=== PATIENT | female | born 1955 | race Caucasian/White ===

== ENCOUNTER 2019-03-11 10:48 | Inpatient (IN) | payer MEDICARE, OTHER ==
[~2019-03-11] VITALS: Ht 170.2 cm; Wt 121.1 kg
[~2019-03-11 10:48] MED LIST: ALEVE220 M1 PO; BAYER WOMEN'S1 EACH PO; BENICAR HCT 401 EACH PO; GLUCOTROL10 MG PO; HYDRALAZINE HCL25 MG PO; INVOKANA PO; VYTORIN 10-401 EACH PO
--- OUTSIDE RECORDS SUMMARY | 2019-03-11 10:52 | XMS REPORT | Summary of Care ---
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 Operator Name Role Phone Mazin Lea PCP Encounter HQ [facility]) [phone] Date(s): 08/20/18 - 08/21/18 [facility] [id number] [place] [address]- [phone] Encounter Diagnosis Diarrhea, unspecified (Final) - 08/28/18 Weakness (Final) - Syncope and collapse (Final) - Type 2 diabetes mellitus without complications (Final) - Essential (primary) hypertension (Final) - Unspecified dementia without behavioral disturbance (Final) - Hyperlipidemia, unspecified (Final) - Christiano coma scale score 13-15, unspecified time (Final) - Dehydration (Final) - Elevated white blood cell count, unspecified (Final) - FPC (current) use of insulin (Final) - Other manager long term care (current) drug therapy (Final) - Personal history of transient ischemic attack (TIA), and cerebral infarction wit hout residual deficits (Final) - Diarrhea (Discharge Diagnosis) - 08/20/18 Generalized weakness (Discharge Diagnosis) - 08/20/18 Discharge Disposition: Home or Self Care Attending Physician: Kendy Rogers DO Vital Signs 1 2 3 Most recent to oldest [Reference Range]: 172.72 cm (08/20/18 5:44 PM) Height 97 DegF (08/21/18 12:11 AM) 97.6 DegF (08/20/18 5:44 PM) Temperature Oral [96.4-99.1 DegF] 154/87 mmHg *HI* (08/21/18 12:11 AM) 139/77 mmHg (08/20/18 11:00 PM) 132/77 mmHg (08/20/18 9:00 PM) Blood Pressure [90-140/60-90 mmHg] 14 BRMIN (08/21/18 12:11 AM) 17 BRMIN (08/20/18 11:00 PM) 17 BRMIN (08/20/18 9:00 PM) Respiratory Rate [14-20 BRMIN] 83 bpm (08/20/18 6:30 PM) 74 bpm (08/20/18 5:44 PM) Peripheral Pulse Rate [60-100 bpm] 118.182 kg (08/20/18 5:44 PM) Weight 39.62 m2 (08/20/18 5:44 PM) Body Mass Index Problem List Condition Effective Dates Status Health Status Informant Dementia(Confirmed) Active Diabetes(Confirmed) Active Hypertension(Confirm Active ed) TIA (transient Resolved ischemic attack)(Confirmed) Allergies, Adverse Reactions, Alerts No Known Medication Allergies Medications Flagyl 500 mg oral tablet 500 mg=1 tab, PO, BID, X 10 day, # 20 tab, 0 Refill(s) Start Date: 08/20/18 Stop Date: 08/30/18 Status: Completed Sodium Chloride 0.9% (Bolus) IV 1,000 mL, 1000 ml/hr, Infuse Over: 1 hr, Route: IV, 1,000, Drug form: INJ, ONCE, Priority: STAT, Dosing Weight 118.182 kg, Start date: 08/20/18 18:27:00 FIBER ANALYST, St op date: 08/20/18 18:27:00 FIBER ANALYST Start Date: 08/20/18 Stop Date: 08/20/18 Status: Completed Results Most recent to 1 oldest [Reference Range]: Neutrophils # 10.1 K/CMM [1.5-8.1 K/CMM] *HI* (08/20/18 6:34 PM) Lymphocytes # 0.6 K/CMM [1.0-5.5 K/CMM] *LOW* (08/20/18 6:34 PM) Monocytes # [0.0-0.8 0.8 K/CMM K/CMM] (08/20/18 6:34 PM) eGFR 43 mL/min/1.73m2 1 *NA* (08/20/18 6:34 PM) A/G Ratio [0.7-1.6] 1.0 (08/20/18 6:34 PM) Albumin Lvl [3.5-5.0 3.6 g/dL g/dL] (08/20/18 6:34 PM) Alk Phos [39-136 96 unit/L unit/L] (08/20/18 6:34 PM) ALT [0-65 unit/L] 22 unit/L (08/20/18 6:34 PM) AGAP [10.0-20.0 13.0 mEq/L mEq/L] (08/20/18 6:34 PM) AST [0-37 unit/L] 13 unit/L (08/20/18 6:34 PM) B/C Ratio [6-25] 12 (08/20/18 6:34 PM) Basophils [0.0-1.0 0.2 % %] (08/20/18:34 PM) BUN [7-22 mg/dL] 16 mg/dL (08/20/18 6:34 PM) Calcium Lvl 9.0 mg/dL [8.5-10.5 mg/dL] (08/20/18:34 PM) Total CK [12-191 59 unit/L unit/L] (08/20/18:34 PM) Chloride Lvl [95-109 105 mEq/L mEq/L] (08/20/18:34 PM) CO2 [24-32 mEq/L] 23 mEq/L *LOW* (08/20/18:34 PM) Creatinine Lvl 1.30 mg/dL [0.50-1.40 mg/dL] (08/20/18:34 PM) Eosinophils [0.0-4.0 0.2 % %] (08/20/18 6:34 PM) Globulin [2.7-4.2 3.7 g/dL g/dL] (08/20/18 6:34 PM) Glucose Lvl [70-99 353 mg/dL mg/dL] *HI* (08/20/18 6:34 PM) Hct [36.0-48.0 %] 41.1 % (08/20/18 6:34 PM) Hgb [12.0-16.0 g/dL] 13.5 g/dL (08/20/18 6:34 PM) INR [0.85-1.17] 1.09 (08/20/18 6:34 PM) Potassium Lvl 4.0 mEq/L [3.5-5.1 mEq/L] (08/20/18 6:34 PM) Lipase Lvl [73-393 166 unit/L unit/L] (08/20/18 6:34 PM) Lymphocytes 5.3 % [20.0-40.0 %] *LOW* (08/20/18:34 PM) MCH [27.0-31.0 pg] 28.8 pg (08/20/18:34 PM) MCHC [32.0-36.0 32.8 g/dL g/dL] (08/20/18:34 PM) MCV [80.0-98.0 fL] 87.8 fL (08/20/18:34 PM) Monocytes [2.0-12.0 7.0 % %] (08/20/18 6:34 PM) MPV [7.4-10.4 fL] 10.1 fL (08/20/18:34 PM) Sodium Lvl [135-145 137 mEq/L mEq/L] (08/20/18:34 PM) Platelet [133-450 199 K/CMM K/CMM] (08/20/18:34 PM) Segs [45.0-75.0 %] 87.3 % *HI* (08/20/18:34 PM) Total Protein 7.3 g/dL [6.4-8.4 g/dL] (08/20/18:34 PM) PT [12.0-14.7 13.9 seconds seconds] (08/20/18 6:34 PM) PTT [22.9-35.8 35.8 seconds seconds] (08/20/18 6:34 PM) RBC [4.20-5.40 4.68 M/CMM M/CMM] (08/20/18:34 PM) RDW [11.5-14.5 %] 13.2 % (08/20/18 6:34 PM) Bili Total [0.2-1.3 1.4 mg/dL mg/dL] *HI* (08/20/18:34 PM) Troponin-I <0.02 ng/mL [0.00-0.40 ng/mL] (08/20/18 6:34 PM) WBC [3.7-10.4 K/CMM] 11.6 K/CMM *HI* (08/20/18 6:34 PM) 1Result Comment: The eGFR is calculated using the CKD-EPI formula. In most young, healthy individuals the eGFR will be >90 mL/min/1.73m2. The eGFR declines with age. An eGFR of 60-89 may be normal in some populations, particularly the elderly, for whom the CKD-EPI formula has not been extensively validated. Use of the eGFR is not recommended in the following populations: Individuals with unstable creatinine concentrations, including patients and those with serious co-morbid conditions. Patients with extremes in muscle mass or diet. The data above are obtained from the National Kid[employer] Disease Education Program ( NKDEP) which additionally recommends that when the eGFR is used in patients with extremes of body mass index for purposes of drug dosing, the eGFR should be mul tiplied by the estimated BMI. Immunizations Given and Recorded Vaccine Date Status Refusal Reason influenza virus vaccine, inactivated 06/16/17 Given pneumococcal 23-valent vaccine 06/15/17 Given Procedures Procedure Date Related Diagnosis Body Site Status section1 Completed Endarterectomy2 Completed Knee replacement3 Completed 1x 4 2right side 3bilateral Social History Social History Type Response Smoking Status Never smoker; Exposure to Tobacco Smoke None; Cigarette Smoking Last 365 Days No; Reg Smoking Cessation Counseling No entered on: 01/03/19 Assessment and Plan No data available for this section
--- OUTSIDE RECORDS SUMMARY | 2019-03-11 10:52 | XMS REPORT | Continuity of Care Document ---
Author Author [facility] Address Unknown Phone Unavailable Care Team Providers [facility] Director Name Role Phone Sian's Plan Information [employer] Unavailable Unavailable Problems Problem Status Onset Date Classification Date Reported Comments Source Near syncope 01/04/2019 01/06/2019 [facility] DIARRHEA Active 01/03/2019 [facility] Diarrhea, unspecified 08/29/2018 03/10/2019 [facility] Diarrhea 08/20/2018 03/10/2019 [facility] Generalized weakness 08/20/2018 03/10/2019 [facility] AMS Active 08/20/2018 [facility] HYPOGLYCEMIA Active 06/15/2017 [facility] AT RISK FOR HYPOGLYCEMIA Active 06/15/2017 [facility] Dementia Active Problem 03/10/2019 [facility] Diabetes Active Problem 03/10/2019 [facility] Hypertension Active Problem 03/10/2019 [facility] TIA (Confirmed) Resolved Problem 03/10/2019 [facility] Weakness 03/10/2019 [facility] Syncope and collapse 03/10/2019 [facility] Type 2 diabetes mellitus without complications 03/10/2019 [facility] Essential hypertension 03/10/2019 [facility] Unspecified dementia without behavioral disturbance 03/10/2019 [facility] Hyperlipidemia, unspecified 03/10/2019 [facility] Christiano coma scale score 13-15, unspecified time 03/10/2019 [facility] Dehydration 03/10/2019 [facility] Elevated white blood cell count, unspecified 03/10/2019 [facility] penitentiary use of insulin 03/10/2019 [facility] Other longterm drug therapy 03/10/2019 [facility] Personal history of transient ischemic attack , and cerebral infarction without residual deficits 03/10/2019 [facility] OTH PERSONAL RISK FACTORS, NOT ELSEWHERE Active [facility] Medications Medication Details Route Status Patient Instructions Ordering Provider Order Date Source Saline Flush 0.9% 10 mL, Route: IVP, Drug Form: INJ, Dosing Weight 118.182, kg, PRN, PRN Line Flush, Start date: 01/03/19 21:28:00 CDT, Duration: 30 day, Stop date: 02/02/19 21:27:00 CDTNotes: (Same as: BD Posiflush) No Longer Active 01/04/2019 [facility] Metronidazole 500 MG Oral Tablet [Flagyl] 500 mg=1 tab, PO, BID, X 10 day, # 20 tab, 0 Refill(s) No Longer Active 08/21/2018 [facility] Sodium Chloride 0.9% (Bolus) IV 1,000 mL, 1000 ml/hr, Infuse Over: 1 hr, Route: IV, 1,000, Drug form: INJ, ONCE, Priority: STAT, Dosing Weight 118.182 kg, Start date: 08/20/18 18:27:00 CHEESE WEIGHER, Stop date: 08/20/18 18:27:00 CHEESE WEIGHER Inactive 08/21/2018 [facility] patient's own NAMENDA XR patient's own NAMENDA XR, 28 mg, Drug form: MISC, Route: PO, Daily, 06/16/17 9:00:00 CDT, Duration: 30 day, Stop date: 07/15/17 9:00:00 CHEESE WEIGHER Inactive 06/16/2017 [facility] influenza virus vaccine, inactivated 0.5 mL, Route: IM, Drug Form: SUSP, Daily, Start date: 06/16/17 9:00:00 CDT, Duration: 1 doses or times, Stop date: 06/16/17 9:00:00 CDTNotes: (Same as: Fluzone Quadrivalent, Fluarix Quadrivalent) For 3 years of age and older (0.5 mL IM) Shake well before use Inactive 06/16/2017 [facility] Sertraline 50 mg, 1 tab, Route: PO, Drug form: TAB, Daily, Dosing Weight 115.909, kg, Start date: 06/16/17 9:00:00 CDT, Duration: 30 day, Stop date: 07/15/17 9:00:00 CSTNotes: (Same as: Zoloft) Inactive 06/16/2017 [facility] Memantine 28 mg, Route: PO, Drug form: ERCAP, Daily, Dosing Weight 115.909, kg, Start date: 06/16/17 9:00:00 CDT, Duration: 30 day, Stop date: 07/15/17 9:00:00 CHEESE WEIGHER No Longer Active 06/16/2017 [facility] Hydralazine Hydrochloride 50 MG Oral Tablet 50 mg, 1 tab, Route: PO, Drug form: TAB, BID, Dosing Weight 115.909, kg, Start date: 06/15/17 21:00:00 CDT, Duration: 30 day, Stop date: 07/15/17 9:00:00 CSTNotes: (Same as: Apresoline) May interfere w/enteral feedings Take With Food No Longer Active 06/16/2017 [facility] donepezil 10 mg, 2 tab, Route: PO, Drug form: TAB, Bedtime, Dosing Weight 115.909, kg, Start date: 06/15/17 21:00:00 CDT, Duration: 30 day, Stop date: 07/14/17 21:00:00 CDTNotes: (Same as: Aricept) No Longer Active 06/16/2017 [facility] atorvastatin 20 mg, 2 tab, Route: PO, Drug form: TAB, Daily, Dosing Weight 115.909, kg, Start date: 06/15/17 21:00:00 CDT, Duration: 30 day, Stop date: 07/14/17 21:00:00 CDTNotes: (Same As: Lipitor) No Longer Active 06/16/2017 [facility] Pneumovax 23 0.5 mL, Route: IM, Drug Form: INJ, Daily, Start date: 06/15/17 17:30:00 CDT, Duration: 1 doses or times, Stop date: 06/15/17 17:30:00 CDTNotes: (Same as: Pneumovax 23) Refrigerate Inactive 06/15/2017 [facility] Ciprofloxacin 500 MG Oral Tablet [Cipro] 500 mg=1 tab, PO, Q12H, for UTI, X 3 day, # 6 tab, 0 Refill(s) No Longer Active 06/15/2017 [facility] pneumococcal capsular polysaccharide type 1 vaccine / pneumococcal capsular polysaccharide type 10A vaccine / pneumococcal capsular polysaccharide type 11A vaccine / pneumococcal capsular polysaccharide type 12F vaccine / pneumococcal capsular polysacchar 0.5 mL, Route: IM, Drug Form: INJ, Daily, Start date: 06/15/17 17:00:00 CDT, Duration: 1 doses or times, Stop date: 06/15/17 17:00:00 CDTNotes: (Same as: Pneumovax 23) Refrigerate Inactive 06/15/2017 [facility] Docusate 100 mg, 1 cap, Route: PO, Drug form: CAP, BID, Dosing Weight 115.909, kg, Start date: 06/15/17 17:00:00 CDT, Duration: 30 day, Stop date: 07/15/17 9:00:00 CSTNotes: (Same as: Colace) (Do Not Crush) No Longer Active 06/15/2017 [facility] PLease Bring Pt's Own Memantin XR to pharmacy for label PLease Bring Pt's Own Memantin XR to pharmacy for label, Reminder, Drug form: MISC, Route: MISC, Daily, 06/15/17 12:00:00 CDT, Duration: 30 day, Stop date: 07/15/17 9:00:00 CHEESE WEIGHER Inactive 06/15/2017 [facility] Humalog 8 unit, SUB-Q, QAM, 0 Refill(s) Active 06/15/2017 [facility] Levemir 60 unit, SUB-Q, QAM (Insulin), 0 Refill(s) Active 06/15/2017 [facility] Rocephin 1 gm, Route: IVPB, [id number], Dosing Weight 115.909, kg, Start date: 06/15/17 11:00:00 CDT, Duration: 7 day, Stop date: 06/21/17 11:00:00 CDT, ABX Indication: Urinary Tract InfectionNotes: (Same As: Rocephin). Use with 100 mL NS and infuse over 30 min MEDICATION WASTE Product Size: 1000 mg Product Wasted: ___ mg No Longer Active 06/15/2017 [facility] sodium chloride 0.9% 1000 ml INJ 1,000 mL 1,000 mL, Rate: 100 ml/hr, Infuse over: 10 hr, Route: IV, Dosing Weight 115.909 kg, Total Volume: 1,000, Start date: 06/15/17 10:13:00 CDT, Duration: 30 day, Stop date: 07/15/17 10:12:00 CHEESE WEIGHER No Longer Active 06/15/2017 [facility] Enoxaparin 40 mg, 0.4 mL, Route: SUB-Q, Drug form: INJ, [id number], Dosing Weight 115.909, kg, Consider for obese patients, Start date: 06/15/17 10:00:00 CDT, Duration: 30 day, Stop date: 07/14/17 22:00:00 CDTNotes: (Same as: Lovenox) No Longer Active 06/15/2017 [facility] Ondansetron 4 mg, 2 mL, Route: IVP, Drug form: INJ, Q6H, Dosing Weight 115.909, kg, PRN Nausea & Vomiting, Start date: 06/15/17 9:51:00 CDT, Duration: 30 day, Stop date: 07/15/17 9:50:00 CSTNotes: (Same as: Kaitlin) MEDICATION WASTE Product Size: 4 mg Product Wasted: ___ mg No Longer Active 06/15/2017 [facility] Insulin Lispro 4 unit, 0.04 mL, Route: SUB-Q, Drug form: SOLN, Bedtime, Dosing Weight 115.909, kg, PRN Blood Glucose Results, Start date: 06/15/17 9:49:00 CDT, Duration: 30 day, Stop date: 07/15/17 9:48:00 CSTNotes: Roll in palms of hands gently; Do not shake `vigorously. (Same as: Humalog ) "Single Patient Use Only " WASTE: F/P - Black; E - Municipal Trash Bin Stable for 28 days at room temperature. Expires in days from Date No Longer Active 06/15/2017 [facility] Glucagon 1 mg, Route: IM, Drug form: PDR/INJ, PRN, Dosing Weight 115.909, kg, PRN Blood Glucose Results, Start date: 06/15/17 9:49:00 CDT, Duration: 30 day, Stop date: 07/15/17 8:48:00 CHEESE WEIGHER No Longer Active 06/15/2017 [facility] Dextrose 50% Syringe 12.5 gm, 25 mL, Route: IVP, Drug Form: INJ, Dosing Weight 115.909, kg, PRN, PRN Blood Glucose Results, Start date: 06/15/17 9:49:00 CDT, Duration: 30 day, Stop date: 07/15/17 8:48:00 CHEESE WEIGHER No Longer Active 06/15/2017 [facility] sertraline 50 mg oral tablet 50 mg=1 tab, PO, Daily, 0 Refill(s) Active 06/15/2017 [facility] Glipizide 5 MG Oral Tablet 5 mg=1 tab, PO, BID, 0 Refill(s) Active 06/15/2017 [facility] Olmesartan Medoxomil and HCTZ Olmesartan Medoxomil and HCTZ, 40mg/12.5mg, PO, Daily, Refill(s) 0 Active 06/15/2017 [facility] levocetirizine 5 mg oral tablet 5 mg=1 tab, PO, QPM, 0 Refill(s) Active 06/15/2017 [facility] Hydralazine Hydrochloride 50 MG Oral Tablet 50 mg=1 tab, PO, BID, 0 Refill(s) Active 06/15/2017 [facility] atorvastatin 20 mg oral tablet 20 mg=1 tab, PO, Daily, 0 Refill(s) Active 06/15/2017 [facility] 24 HR Memantine hydrochloride 28 MG Extended Release Capsule [Namenda] 28 mg=1 cap, PO, Daily, # 30 cap, 0 Refill(s) Active 06/15/2017 [facility] donepezil 10 mg oral tablet 10 mg=1 tab, PO, Bedtime, 0 Refill(s) Active 06/15/2017 [facility] D5W 1/2NS 1,000 mL 1,000 mL, Rate: 150 ml/hr, Infuse over: 6.7 hr, Route: IV, Dosing Weight 115.909 kg, Total Volume: 1,000, Start date: 06/15/17 5:31:00 CDT, Duration: 30 day, Stop date: 07/15/17 5:30:00 CHEESE WEIGHER Inactive 06/15/2017 [facility] Dextrose 50% Syringe 25 gm, Route: IVP, Dosing Weight 113.636, kg, ONCE, Start date: 06/15/17 5:30:00 CDT, Stop date: 06/15/17 5:30:00 CDT Inactive 06/15/2017 [facility] D5W 1/2NS 1,000 mL 1,000 mL, Rate: 75 ml/hr, Infuse over: 13.3 hr, Route: IV, Dosing Weight 113.636 kg, Total Volume: 1,000, Priority: STAT, Start date: 06/15/17 4:05:00 CDT, Duration: 30 day, Stop date: 07/15/17 4:04:00 CHEESE WEIGHER Inactive 06/15/2017 [facility] Allergies, Adverse Reactions, Alerts Substance Category Reaction Severity Reaction type Status Date Reported Comments Source No Known Medication Allergies Assertion Drug allergy [facility] Immunizations Immunization Date Given Site Status Last Updated Comments Source influenza virus vaccine, inactivated 06/16/2017 Left Deltoid completed [facility] pneumococcal 23-valent vaccine 06/15/2017 Right Deltoid completed [facility] Results Order Name Results Value Reference Range Date Interpretation Comments Source URINE AND STOOL UA Urobilinogen <=1.0 mg/dL 0.1 - 1.0 01/04/2019 [facility] URINE AND STOOL UA Blood Negative (01/04/19 12:52 AM) Negative 01/04/2019 [facility] URINE AND STOOL UA Hyal Cast 20 0 - 2 01/04/2019 [facility] URINE AND STOOL UA Mucus Few /LPF None Seen /LPF 01/04/2019 [facility] URINE AND STOOL UA RBC 2 0 - 2 01/04/2019 [facility] URINE AND STOOL UA WBC 2 0 - 5 01/04/2019 [facility] URINE AND STOOL UA Sq Epi Occasional /LPF Few /LPF 01/04/2019 [facility] URINE AND STOOL UA Leuk Est Negative (01/04/19 12:52 AM) Negative 01/04/2019 [facility] URINE AND STOOL UA Nitrite Negative (01/04/19 12:52 AM) Negative 01/04/2019 [facility] URINE AND STOOL UA Spec Grav 1.020 <=1.030 01/04/2019 [facility] URINE AND STOOL UA Turbidity Clear (01/04/19 12:52 AM) Clear 01/04/2019 [facility] URINE AND STOOL UA Color Yellow *NA* (01/04/19 12:52 AM) Yellow 01/04/2019 [facility] URINE AND STOOL UA Ketones Trace mg/dL Negative mg/dL 01/04/2019 [facility] URINE AND STOOL UA Bili Negative *NA* (01/04/19 12:52 AM) Negative 01/04/2019 [facility] URINE AND STOOL UA Glucose Negative mg/dL Negative mg/dL 01/04/2019 [facility] URINE AND STOOL UA pH 5.0 5.0 - 8.0 01/04/2019 [facility] URINE AND STOOL UA Protein Negative mg/dL Negative mg/dL 01/04/2019 [facility] CARDIAC ENZYMES BNP 112 <=100 pg/mL 01/04/2019 [facility] CARDIAC ENZYMES Troponin-I <0.02 0.00 - 0.40 01/04/2019 [facility] CHEM PANEL A/G Ratio 1.1 0.7 - 1.6 01/04/2019 [facility] CHEM PANEL Globulin 3.4 2.7 - 4.2 01/04/2019 [facility] CHEM PANEL B/C Ratio 17 6 - 25 01/04/2019 [facility] CHEM PANEL AGAP 10.5 10.0 - 20.0 01/04/2019 [facility] CHEM PANEL eGFR 65 01/04/2019 Result Comment: The eGFR is calculated using the [...] from the National Kidney Disease Education Program (NKDEP) which additionally recommends that when the eGFR is used in patients with extremes of body mass index for purposes of drug dosing, the eGFR should be multiplied by the estimated BMI. [facility] CHEM PANEL BUN 16 7 - 22 01/04/2019 [facility] CHEM PANEL Potassium Lvl 3.5 3.5 - 5.1 01/04/2019 [facility] CHEM PANEL Sodium Lvl 141 135 - 145 01/04/2019 [facility] CHEM PANEL Creatinine Lvl 0.93 0.50 - 1.40 01/04/2019 [facility] CHEM PANEL Calcium Lvl 9.2 8.5 - 10.5 01/04/2019 [facility] CHEM PANEL CO2 28 24 - 32 01/04/2019 [facility] CHEM PANEL Chloride Lvl 106 95 - 109 01/04/2019 [facility] CHEM PANEL Bili Total 1.1 0.2 - 1.3 01/04/2019 [facility] CHEM PANEL Alk Phos 94 39 - 136 01/04/2019 [facility] CHEM PANEL AST 12 0 - 37 01/04/2019 [facility] CHEM PANEL ALT 23 0 - 65 01/04/2019 [facility] CHEM PANEL Albumin Lvl 3.6 3.5 - 5.0 01/04/2019 [facility] CHEM PANEL Total Protein 7.0 6.4 - 8.4 01/04/2019 [facility] CHEM PANEL Glucose Lvl 149 70 - 99 01/04/2019 [facility] HEMATOLOGY Basophils 0.3 0.0 - 1.0 01/04/2019 [facility] HEMATOLOGY Lymphocytes # 1.0 1.0 - 5.5 01/04/2019 [facility] HEMATOLOGY Monocytes 7.3 2.0 - 12.0 01/04/2019 [facility] HEMATOLOGY Lymphocytes 10.8 20.0 - 40.0 01/04/2019 [facility] HEMATOLOGY Eosinophils 1.2 0.0 - 4.0 01/04/2019 [facility] HEMATOLOGY Eosinophils # 0.1 0.0 - 0.5 01/04/2019 [facility] Monocytes # 0.7 0.0 - 0.8 01/04/2019 [facility] Neutrophils # 7.8 1.5 - 8.1 01/04/2019 [facility] Segs 80.4 45.0 - 75.0 01/04/2019 [facility] Platelet 225 133 - 450 01/04/2019 [facility] RDW 13.3 11.5 - 14.5 01/04/2019 [facility] MPV 8.9 7.4 - 10.4 01/04/2019 [facility] MCH 28.9 27.0 - 31.0 01/04/2019 [facility] MCHC 33.5 32.0 - 36.0 01/04/2019 [facility] Hct 37.9 36.0 - 48.0 01/04/2019 [facility] MCV 86.3 80.0 - 98.0 01/04/2019 [facility] RBC 4.39 4.20 - 5.40 01/04/2019 [facility] WBC 9.7 3.7 - 10.4 01/04/2019 [facility] Hgb 12.7 12.0 - 16.0 01/04/2019 [facility] CARDIAC ENZYMES Troponin-I <0.02 0.00 - 0.40 08/21/2018 [facility] CARDIAC ENZYMES Total CK 59 12 - 191 08/21/2018 [facility] CHEM PANEL Lipase Lvl 166 73 - 393 08/21/2018 [facility] CHEM PANEL eGFR 43 08/21/2018 Result Comment: The eGFR is calculated using the [...] from the National Kidney Disease Education Program (NKDEP) which additionally recommends that when the eGFR is used in patients with extremes of body mass index for purposes of drug dosing, the eGFR should be multiplied by the estimated BMI. [facility] CHEM PANEL AST 13 0 - 37 08/21/2018 [facility] CHEM PANEL ALT 22 0 - 65 08/21/2018 [facility] CHEM PANEL Bili Total 1.4 0.2 - 1.3 08/21/2018 [facility] CHEM PANEL Alk Phos 96 39 - 136 08/21/2018 [facility] CHEM PANEL Calcium Lvl 9.0 8.5 - 10.5 08/21/2018 [facility] CHEM PANEL Total Protein 7.3 6.4 - 8.4 08/21/2018 [facility] CHEM PANEL Albumin Lvl 3.6 3.5 - 5.0 08/21/2018 [facility] CHEM PANEL Sodium Lvl 137 135 - 145 08/21/2018 [facility] CHEM PANEL Potassium Lvl 4.0 3.5 - 5.1 08/21/2018 [facility] CHEM PANEL Chloride Lvl 105 95 - 109 08/21/2018 [facility] CHEM PANEL CO2 23 24 - 32 08/21/2018 [facility] CHEM PANEL Glucose Lvl 353 70 - 99 08/21/2018 [facility] CHEM PANEL BUN 16 7 - 22 08/21/2018 [facility] CHEM PANEL Creatinine Lvl 1.30 0.50 - 1.40 08/21/2018 [facility] CHEM PANEL Globulin 3.7 2.7 - 4.2 08/21/2018 [facility] CHEM PANEL A/G Ratio 1.0 0.7 - 1.6 08/21/2018 [facility] CHEM PANEL B/C Ratio 12 6 - 25 08/21/2018 [facility] CHEM PANEL AGAP 13.0 10.0 - 20.0 08/21/2018 [facility] PT 13.9 12.0 - 14.7 08/21/2018 [facility] INR 1.09 0.85 - 1.17 08/21/2018 [facility] PTT 35.8 22.9 - 35.8 08/21/2018 [facility] Hgb 13.5 12.0 - 16.0 08/21/2018 [facility] Hct 41.1 36.0 - 48.0 08/21/2018 [facility] MCV 87.8 80.0 - 98.0 08/21/2018 [facility] MCH 28.8 27.0 - 31.0 08/21/2018 [facility] RBC 4.68 4.20 - 5.40 08/21/2018 [facility] WBC 11.6 3.7 - 10.4 08/21/2018 [facility] MCHC 32.8 32.0 - 36.0 08/21/2018 [facility] RDW 13.2 11.5 - 14.5 08/21/2018 [facility] Platelet 199 133 - 450 08/21/2018 [facility] MPV 10.1 7.4 - 10.4 08/21/2018 [facility] Lymphocytes 5.3 20.0 - 40.0 08/21/2018 [facility] Segs 87.3 45.0 - 75.0 08/21/2018 [facility] Monocytes 7.0 2.0 - 12.0 08/21/2018 [facility] Eosinophils 0.2 0.0 - 4.0 08/21/2018 [facility] Lymphocytes # 0.6 1.0 - 5.5 08/21/2018 [facility] Basophils 0.2 0.0 - 1.0 08/21/2018 [facility] Neutrophils # 10.1 1.5 - 8.1 08/21/2018 [facility] Monocytes # 0.8 0.0 - 0.8 08/21/2018 [facility] CHEM PANEL eGFR 80 06/16/2017 Result Comment: The eGFR is calculated using the [...] from the National Kidney Disease Education Program (NKDEP) which additionally recommends that when the eGFR is used in patients with extremes of body mass index for purposes of drug dosing, the eGFR should be multiplied by the estimated BMI. [facility] CHEM PANEL BUN 14 7 - 22 06/16/2017 [facility] CHEM PANEL Glucose Lvl 114 70 - 99 06/16/2017 [facility] CHEM PANEL Creatinine Lvl 0.79 0.50 - 1.40 06/16/2017 [facility] CHEM PANEL Potassium Lvl 3.7 3.5 - 5.1 06/16/2017 [facility] CHEM PANEL Sodium Lvl 143 135 - 145 06/16/2017 [facility] CHEM PANEL CO2 27 24 - 32 06/16/2017 [facility] CHEM PANEL Chloride Lvl 110 95 - 109 06/16/2017 [facility] CHEM PANEL Calcium Lvl 7.9 8.5 - 10.5 06/16/2017 [facility] CHEM PANEL AGAP 9.7 10.0 - 20.0 06/16/2017 [facility] HEMATOLOGY RDW 13.1 11.5 - 14.5 06/16/2017 [facility] Platelet 184 133 - 450 06/16/2017 [facility] MCH 28.6 27.0 - 31.0 06/16/2017 [facility] MCHC 33.6 32.0 - 36.0 06/16/2017 [facility] MCV 85.2 80.0 - 98.0 06/16/2017 [facility] HEMATOLOGY WBC 6.3 3.7 - 10.4 06/16/2017 [facility] RBC 4.14 4.20 - 5.40 06/16/2017 [facility] Hgb 11.8 12.0 - 16.0 06/16/2017 [facility] Hct 35.3 36.0 - 48.0 06/16/2017 [facility] MPV 9.5 7.4 - 10.4 06/16/2017 [facility] Segs-Bands # 3.2 1.5 - 8.1 06/16/2017 [facility] Monocytes # 0.5 0.0 - 0.8 06/16/2017 [facility] HEMATOLOGY Lymphocytes # 2.2 1.0 - 5.5 06/16/2017 [facility] HEMATOLOGY Basophils 0.9 0.0 - 1.0 06/16/2017 [facility] HEMATOLOGY Eosinophils 5.7 0.0 - 4.0 06/16/2017 [facility] HEMATOLOGY Segs 50.8 45.0 - 75.0 06/16/2017 [facility] HEMATOLOGY Monocytes 7.3 2.0 - 12.0 06/16/2017 [facility] HEMATOLOGY Lymphocytes 35.3 20.0 - 40.0 06/16/2017 [facility] HEMATOLOGY Eosinophils # 0.4 0.0 - 0.5 06/16/2017 [facility] HEMATOLOGY Basophils # 0.1 0.0 - 0.2 06/16/2017 [facility] URINE AND STOOL UA Urobilinogen <=1.0 mg/dL 0.1 - 1.0 06/15/2017 [facility] URINE AND STOOL UA Color Ltyellow 06/15/2017 [facility] URINE AND STOOL UA Blood Negative (06/15/17 11:00 AM) Negative 06/15/2017 [facility] URINE AND STOOL UA WBC 2 0 - 5 06/15/2017 [facility] URINE AND STOOL UA RBC <1 0 - 2 06/15/2017 [facility] URINE AND STOOL UA Sq Epi Occasional /LPF Few /LPF 06/15/2017 [facility] URINE AND STOOL UA Nitrite Negative (06/15/17 11:00 AM) Negative 06/15/2017 [facility] URINE AND STOOL UA Leuk Est Negative (06/15/17 11:00 AM) Negative 06/15/2017 [facility] URINE AND STOOL UA Protein Negative mg/dL Negative mg/dL 06/15/2017 [facility] URINE AND STOOL UA Glucose Negative mg/dL Negative mg/dL 06/15/2017 [facility] URINE AND STOOL UA Bili Negative *NA* (06/15/17 11:00 AM) Negative 06/15/2017 [facility] URINE AND STOOL UA Ketones Negative mg/dL Negative mg/dL 06/15/2017 [facility] URINE AND STOOL UA Spec Grav 1.004 <=1.030 06/15/2017 [facility] URINE AND STOOL UA pH 7.0 5.0 - 8.0 06/15/2017 [facility] URINE AND STOOL UA Turbidity Clear (06/15/17 11:00 AM) Clear 06/15/2017 [facility] CARDIAC ENZYMES Troponin-I <0.02 0.00 - 0.40 06/15/2017 [facility] CARDIAC ENZYMES CK MB 2.3 0.5 - 3.6 06/15/2017 [facility] CARDIAC ENZYMES Total CK 95 12 - 191 06/15/2017 [facility] CARDIAC ENZYMES CK MB Index 2.4 0.0 - 2.5 06/15/2017 [facility] CHEM PANEL A/G Ratio 1.1 0.7 - 1.6 06/15/2017 [facility] CHEM PANEL eGFR 71 06/15/2017 Result Comment: The eGFR is calculated using the [...] from the National Kidney Disease Education Program (NKDEP) which additionally recommends that when the eGFR is used in patients with extremes of body mass index for purposes of drug dosing, the eGFR should be multiplied by the estimated BMI. [facility] CHEM PANEL CO2 26 24 - 32 06/15/2017 [facility] CHEM PANEL Calcium Lvl 8.7 8.5 - 10.5 06/15/2017 [facility] CHEM PANEL Bili Total 0.6 0.2 - 1.3 06/15/2017 [facility] CHEM PANEL AGAP 12.4 10.0 - 20.0 06/15/2017 [facility] CHEM PANEL Potassium Lvl 3.4 3.5 - 5.1 06/15/2017 [facility] CHEM PANEL Chloride Lvl 104 95 - 109 06/15/2017 [facility] CHEM PANEL Sodium Lvl 139 135 - 145 06/15/2017 [facility] CHEM PANEL Total Protein 6.6 6.4 - 8.4 06/15/2017 [facility] CHEM PANEL ALT 14 0 - 65 06/15/2017 [facility] CHEM PANEL AST 17 0 - 37 06/15/2017 [facility] CHEM PANEL Alk Phos 100 39 - 136 06/15/2017 [facility] CHEM PANEL Albumin Lvl 3.4 3.5 - 5.0 06/15/2017 [facility] CHEM PANEL B/C Ratio 23 6 - 25 06/15/2017 [facility] CHEM PANEL Globulin 3.2 2.7 - 4.2 06/15/2017 [facility] CHEM PANEL Glucose Lvl 105 70 - 99 06/15/2017 [facility] CHEM PANEL BUN 20 7 - 22 06/15/2017 [facility] CHEM PANEL Creatinine Lvl 0.87 0.50 - 1.40 06/15/2017 [facility] HEMATOLOGY RBC 4.57 4.20 - 5.40 06/15/2017 [facility] HEMATOLOGY Hgb 12.8 12.0 - 16.0 06/15/2017 [facility] HEMATOLOGY MCHC 33.5 32.0 - 36.0 06/15/2017 [facility] HEMATOLOGY RDW 13.3 11.5 - 14.5 06/15/2017 [facility] HEMATOLOGY MPV 9.4 7.4 - 10.4 06/15/2017 [facility] HEMATOLOGY Platelet 198 133 - 450 06/15/2017 [facility] MCH 28.1 27.0 - 31.0 06/15/2017 [facility] HEMATOLOGY MCV 83.8 80.0 - 98.0 06/15/2017 [facility] HEMATOLOGY WBC 23.9 3.7 - 10.4 06/15/2017 [facility] HEMATOLOGY Hct 38.3 36.0 - 48.0 06/15/2017 [facility] HEMATOLOGY PT 17.1 12.0 - 14.7 06/15/2017 [facility] HEMATOLOGY INR 1.37 0.85 - 1.17 06/15/2017 [facility] HEMATOLOGY PTT 49.8 22.9 - 35.8 06/15/2017 [facility] HEMATOLOGY Monocytes 6.3 2.0 - 12.0 06/15/2017 [facility] HEMATOLOGY Eosinophils 0.6 0.0 - 4.0 06/15/2017 [facility] HEMATOLOGY Basophils 0.2 0.0 - 1.0 06/15/2017 [facility] HEMATOLOGY Basophils # 0.1 0.0 - 0.2 06/15/2017 [facility] HEMATOLOGY Eosinophils # 0.1 0.0 - 0.5 06/15/2017 [facility] HEMATOLOGY Segs 86.9 45.0 - 75.0 06/15/2017 [facility] HEMATOLOGY Lymphocytes 6.0 20.0 - 40.0 06/15/2017 [facility] HEMATOLOGY Segs-Bands # 20.8 1.5 - 8.1 06/15/2017 [facility] HEMATOLOGY Lymphocytes # 1.4 1.0 - 5.5 06/15/2017 [facility] HEMATOLOGY Monocytes # 1.5 0.0 - 0.8 06/15/2017 [facility] Pathology Reports No Data Provided for This Section Diagnostic Reports Report Value Date Source Chest 1view DX Chest radiograph 1 view INDICATION: Syncope COMPARISON: 08/20/2018 FINDINGS: Heart size is normal. Pulmonary vasculature is not congested. Lungs are clear with no pneumonic consolidation. No large pleural effusion or pneumothorax. IMPRESSION: No acute abnormality. 01/03/2019 [facility] Chest 1view DX Clinical Indication: - fall; Comparison: 06/15/2017, FINDINGS: The cardiomediastinal silhouette is normal in size. No significant pleural effusions are seen. The bony structures are intact. No evidence for pneumothorax. IMPRESSION: 1. No acute disease in the chest. 08/20/2018 [facility] Brain wo contrast CT EXAM: CT BRAIN WITHOUT CONTRAST DATE: 08/20/2018 18:27 [facility]HER INDICATION: Syncope. COMPARISON: None. TECHNIQUE: Noncontrast axial imaging of the brain was acquired from the vertex to the skull base. Reformatted coronal and sagittal images were provided for review. CT radiation dose DLP: 1740.33 mGy-cm. FINDINGS: No acute intracranial hemorrhage, midline shift, or mass effect is identified. The melenrdez-white matter differentiation is preserved. The ventricles and extra- axial spaces are prominent, compatible with moderate diffuse parenchymal volume loss. Mild chronic microangiopathic changes are noted. The orbits, paranasal sinuses, and mastoid air cells are unremarkable. The calvarium and skull base are intact. There is atherosclerotic calcification of the carotid siphons. IMPRESSION: 1. No acute intracranial hemorrhage or mass effect. 2. Moderate diffuse parenchymal volume loss and mild chronic microangiopathic changes. SL: [id number] 08/20/2018 [facility] Pelvis AP DX Clinical Indication: Pain, Trauma - fall Comparison: None FINDINGS: The AP pelvis radiograph shows no fractures or dislocations of the pelvis. The pelvic and obturator rings are intact. The pubic rami are intact. The symphysis pubis and sacroiliac joints are unremarkable. The visualized sacral foramina are unremarkable. The hip joint spaces, proximal femoral regions and acetabular regions are unremarkable. If there is further concern, recommend follow-up radiographs or bone scan for complete assessment. IMPRESSION: Unremarkable AP pelvis radiograph. SL: VITO 08/20/2018 [facility] Chest 1view DX EXAM: Chest 1view DX DATE: 06/15/2017 4:04 AM CDT INDICATION: - r/o PNA generalized weakness. COMPARISON: None. IMPRESSION: Prominent cardiac silhouette. No definite failure. Low lung volume. No gross focal consolidation, significant pleural effusion or pneumothorax detected. SL: [id number] 06/15/2017 [facility] Consultation Notes No Data Provided for This Section Discharge Summaries No Data Provided for This Section History and Physicals No Data Provided for This Section Vital Signs Vital Sign Value Date Comments Source Respitory Rate 16 01/04/2019 [facility] Heart Rate 89 01/04/2019 [facility] Systolic (mm Hg) 130 01/04/2019 [facility] Diastolic (mm Hg) 61 01/04/2019 [facility] Heart Rate 88 01/04/2019 [facility] Respitory Rate 16 01/04/2019 [facility] Systolic (mm Hg) 123 01/04/2019 [facility] Diastolic (mm Hg) 66 01/04/2019 [facility] Systolic (mm Hg) 127 01/04/2019 [facility] Diastolic (mm Hg) 64 01/04/2019 [facility] Temperature Oral (F) 98.1 F 01/04/2019 [facility] Heart Rate 87 01/04/2019 [facility] Respitory Rate 16 01/04/2019 [facility] Systolic (mm Hg) 154 08/21/2018 [facility] Diastolic (mm Hg) 87 08/21/2018 [facility] Temperature Oral (F) 97 F 08/21/2018 [facility] Respitory Rate 14 08/21/2018 [facility] Respitory Rate 17 08/21/2018 [facility] Systolic (mm Hg) 139 08/21/2018 [facility] Diastolic (mm Hg) 77 08/21/2018 [facility] Systolic (mm Hg) 132 08/21/2018 [facility] Diastolic (mm Hg) 77 08/21/2018 [facility] Respitory Rate 17 08/21/2018 [facility] Heart Rate 83 08/21/2018 [facility] BMI Calculated 39.62 08/20/2018 [facility] Weight 118.182 08/20/2018 [facility] Height 172.72 cm 08/20/2018 [facility] Heart Rate 74 08/20/2018 [facility] Temperature Oral (F) 97.6 F 08/20/2018 [facility] Heart Rate 61 06/16/2017 [facility] Temperature Oral (F) 97.8 F 06/16/2017 [facility] Systolic (mm Hg) 133 06/16/2017 [facility] Diastolic (mm Hg) 65 06/16/2017 [facility] Respitory Rate 16 06/16/2017 [facility] Systolic (mm Hg) 147 06/16/2017 [facility] Diastolic (mm Hg) 68 06/16/2017 [facility] Respitory Rate 15 06/16/2017 [facility] Heart Rate 62 06/16/2017 [facility] Temperature Oral (F) 98.1 F 06/16/2017 [facility] Temperature Oral (F) 98.3 F 06/16/2017 [facility] Systolic (mm Hg) 152 06/16/2017 [facility] Diastolic (mm Hg) 76 06/16/2017 [facility] Respitory Rate 16 06/16/2017 [facility] Heart Rate 67 06/16/2017 [facility] Height 170.18 cm 06/15/2017 [facility] BMI Calculated 40.02 06/15/2017 [facility] Weight 115.909 06/15/2017 [facility] Weight 113.636 06/15/2017 [facility] Encounters Location Location Details Encounter Type Encounter Number Reason For Visit Attending Provider ADM Date DC Date Status Source [facility] Inpatient [id number] David Vilchis 06/15/2017 06/16/2017 [facility] Emergency [id number] Cat Rogers 08/20/2018 08/21/2018 [facility] Emergency [id number] Jaycee Mcdowell 01/04/2019 01/04/2019 [facility] Procedures Procedure Code Date Perfomer Comments Source section<sup>1</sup> [id number] x 4 [facility] Endarterectomy<sup>2</sup> [id number] right side [facility] Knee replacement<sup>3</sup> [id number] bilateral [facility] Assessment and Plan Assessment and Plan Date Source Extracted from:Title: Discharge Summary * Author: David Vilchis DO Date: 06/16/17 Discharge Plan Discharge Summary Plan Discharge Status: improved. Discharge instructions given: to patient. Discharge disposition: discharge to home. Prescriptions: continue same medications. Diagnosis Hypoglycemia secondary to insulin and diabetic medication Dementia history likely moderate Hypertension Leukocytosis of unknown origin Presumed UTI . Course Improving. Education and Follow-up Counseled: patient, family, regarding diagnosis, regarding treatment, regarding medications. Extracted from:Title: General Admission H&P * Author: David Vilchis DO Date: 06/15/17 Impression and Plan Hypoglycemia secondary to insulin and diabetic medication Dementia history likely moderate Hypertension Leukocytosis of unknown origin Presumed UTI We will continue with IV fluids for hydration Resume home medications and monitor blood glucose at this time Sent for UA for analysis if needed Discussed plan with patient and daughters at bedside. Possible discharge later today if no other issues Physical therapy to eval patient 06/16/2017 [facility] Plan of Care No Data Provided for This Section Social History Social History Date Source Social History TypeResponse Smoking Status Never smoker; Exposure to Tobacco Smoke None; Cigarette Smoking Last 365 Days No; Reg Smoking Cessation Counseling No entered on: 01/03/19 01/04/2019 [facility] Family History No Data Provided for This Section Advance Directives No Data Provided for This Section Functional Status No Data Provided for This Section
--- OUTSIDE RECORDS SUMMARY | 2019-03-11 10:53 | XMS REPORT | Summary of Care ---
Author Author [facility] Organization [facility] Address Unknown Phone Unavailable Encounter HQ Anibal(YADIEL) [id number] Date(s): 06/15/17 - 06/16/17 [facility] [address] [place] [address]- Discharge Disposition: Home or Self Care Attending Physician: David Vilchis DO Admitting Physician: David Vilchis DO Vital Signs 1 2 3 Most recent to oldest [Reference Range]: 170.18 cm (06/15/17 5:30 AM) Height 97.8 DegF (06/16/17 11:02 AM) 98.1 DegF (06/16/17 7:12 AM) 98.3 DegF (06/16/17 4:01 AM) Temperature Oral [96.4-99.1 DegF] 133/65 mmHg (06/16/17 11:02 AM) 147/68 mmHg *HI* (06/16/17 7:12 AM) 152/76 mmHg *HI* (06/16/17 4:01 AM) Blood Pressure [90-140/60-90 mmHg] 16 BRMIN (06/16/17 11:02 AM) 15 BRMIN (06/16/17 7:12 AM) 16 BRMIN (06/16/17 4:01 AM) Respiratory Rate [14-20 BRMIN] 61 bpm (06/16/17 11:02 AM) 62 bpm (06/16/17 7:12 AM) 67 bpm (06/16/17 4:01 AM) Peripheral Pulse Rate [60-100 bpm] 115.909 kg (06/15/17 5:30 AM) 113.636 kg (06/15/17 2:30 AM) Weight 40.02 m2 (06/15/17 5:30 AM) Body Mass Index Problem List Condition Effective Dates Status Health Status Informant Dementia(Confirmed) Active Diabetes(Confirmed) Active Hypertension(Confirm Active ed) TIA (transient Resolved ischemic attack)(Confirmed) Allergies, Adverse Reactions, Alerts Substance Reaction Severity Status NKDA Active Medications atorvastatin 20 mg, 2 tab, Route: PO, Drug form: TAB, Daily, Dosing Weight 115.909, kg, Start date: 06/15/17 21:00:00 CDT, Duration: 30 day, Stop date: 07/14/17 21:00:00 CDT Notes: (Same As: Lipitor) Start Date: 06/15/17 Stop Date: 06/16/17 Status: Discontinued atorvastatin 20 mg oral tablet 20 mg=1 tab, PO, Daily, 0 Refill(s) Start Date: 06/15/17 Status: Ordered Cipro 500 mg oral tablet 500 mg=1 tab, PO, Q12H, for UTI, X 3 day, # 6 tab, 0 Refill(s) Start Date: 06/15/17 Stop Date: 06/18/17 Status: Completed D5W 1/2NS 1,000 mL 1,000 mL, Rate: 150 ml/hr, Infuse over: 6.7 hr, Route: IV, Dosing Weight 115.909 kg, Total Volume: 1,000, Start date: 06/15/17 5:31:00 CDT, Duration: 30 day, St op date: 07/15/17 5:30:00 PATTERN CARRIER Start Date: 06/15/17 Stop Date: 06/15/17 Status: Discontinued D5W 1/2NS 1,000 mL 1,000 mL, Rate: 75 ml/hr, Infuse over: 13.3 hr, Route: IV, Dosing Weight 113.636 kg, Total Volume: 1,000, Priority: STAT, Start date: 06/15/17 4:05:00 CDT, Dura tion: 30 day, Stop date: 07/15/17 4:04:00 PATTERN CARRIER Start Date: 06/15/17 Stop Date: 06/15/17 Status: Discontinued Dextrose 50% Syringe 12.5 gm, 25 mL, Route: IVP, Drug Form: INJ, Dosing Weight 115.909, kg, PRN, PRN Blood Glucose Results, Start date: 06/15/17 9:49:00 CDT, Duration: 30 day, Stop date: 07/15/17 8:48:00 PATTERN CARRIER Start Date: 06/15/17 Stop Date: 06/16/17 Status: Discontinued Dextrose 50% Syringe 25 gm, 50 mL, Route: IVP, Drug Form: INJ, Dosing Weight 115.909, kg, PRN, PRN Bl ood Glucose Results, Start date: 06/15/17 9:49:00 CDT, Duration: 30 day, Stop da te: 07/15/17 8:48:00 PATTERN CARRIER Start Date: 06/15/17 Stop Date: 06/16/17 Status: Discontinued Dextrose 50% Syringe 25 gm, Route: IVP, Dosing Weight 113.636, kg, ONCE, Start date: 06/15/17 5:30:00 CDT, Stop date: 06/15/17 5:30:00 CDT Start Date: 06/15/17 Stop Date: 06/15/17 Status: Completed docusate 100 mg, 1 cap, Route: PO, Drug form: CAP, BID, Dosing Weight 115.909, kg, Start date: 06/15/17 17:00:00 CDT, Duration: 30 day, Stop date: 07/15/17 9:00:00 PATTERN CARRIER Notes: (Same as: Colace) (Do Not Crush) Start Date: 06/15/17 Stop Date: 06/16/17 Status: Discontinued donepezil 10 mg, 2 tab, Route: PO, Drug form: TAB, Bedtime, Dosing Weight 115.909, kg, Sta rt date: 06/15/17 21:00:00 CDT, Duration: 30 day, Stop date: 07/14/17 21:00:00 C DT Notes: (Same as: Aricept) Start Date: 06/15/17 Stop Date: 06/16/17 Status: Discontinued donepezil 10 mg oral tablet 10 mg=1 tab, PO, Bedtime, 0 Refill(s) Start Date: 06/15/17 Status: Ordered enoxaparin 40 mg, 0.4 mL, Route: SUB-Q, Drug form: INJ, [id number], Dosing Weight 115.909, kg , Consider for obese patients, Start date: 06/15/17 10:00:00 CDT, Duration: 30 d ay, Stop date: 07/14/17 22:00:00 CDT Notes: (Same as: Lovenox) Start Date: 06/15/17 Stop Date: 06/16/17 Status: Discontinued glipiZIDE 5 mg oral tablet 5 mg=1 tab, PO, BID, 0 Refill(s) Start Date: 06/15/17 Status: Ordered glucagon 1 mg, Route: IM, Drug form: PDR/INJ, PRN, Dosing Weight 115.909, kg, PRN Blood G lucose Results, Start date: 06/15/17 9:49:00 CDT, Duration: 30 day, Stop date: 09/14/16 8:48:00 PATTERN CARRIER Start Date: 06/15/17 Stop Date: 06/16/17 Status: Discontinued Humalog 8 unit, SUB-Q, QAM, 0 Refill(s) Start Date: 06/15/17 Status: Ordered hydrALAZINE 50 mg oral tablet 50 mg, 1 tab, Route: PO, Drug form: TAB, BID, Dosing Weight 115.909, kg, Start d ate: 06/15/17 21:00:00 CDT, Duration: 30 day, Stop date: 07/15/17 9:00:00 PATTERN CARRIER Notes: (Same as: Apresoline) May interfere w/enteral feedings Take With Food Start Date: 06/15/17 Stop Date: 06/16/17 Status: Discontinued hydrALAZINE 50 mg oral tablet 50 mg=1 tab, PO, BID, 0 Refill(s) Start Date: 06/15/17 Status: Ordered influenza virus vaccine, inactivated 0.5 mL, Route: IM, Drug Form: SUSP, Daily, Start date: 06/16/17 9:00:00 CDT, Dur ation: 1 doses or times, Stop date: 06/16/17 9:00:00 CDT Notes: (Same as: Fluzone Quadrivalent, Fluarix Quadrivalent)For 3 years of age a nd older (0.5 mL IM)Shake well before use Start Date: 06/16/17 Stop Date: 06/16/17 Status: Completed insulin lispro 4 unit, 0.04 mL, Route: SUB-Q, Drug form: SOLN, Bedtime, Dosing Weight 115.909, kg, PRN Blood Glucose Results, Start date: 06/15/17 9:49:00 CDT, Duration: 30 da y, Stop date: 07/15/17 9:48:00 PATTERN CARRIER Notes: Roll in palms of hands gently; Do not shake `vigorously. (Same as: Marj og )"Single Patient Use Only "WASTE: F/P - Black; E - Municipal Trash Bin Stabl e for 28 days at room temperature.Expires in days from Date Start Date: 06/15/17 Stop Date: 06/16/17 Status: Discontinued insulin lispro 3 unit, 0.03 mL, Route: SUB-Q, Drug form: SOLN, Bedtime, Dosing Weight 115.909, kg, PRN Blood Glucose Results, Start date: 06/15/17 9:49:00 CDT, Duration: 30 da y, Stop date: 07/15/17 9:48:00 PATTERN CARRIER Notes: Roll in palms of hands gently; Do not shake `vigorously. (Same as: Marj og )"Single Patient Use Only "WASTE: F/P - Black; E - Municipal Trash Bin Stabl e for 28 days at room temperature.Expires in days from Date Start Date: 06/15/17 Stop Date: 06/16/17 Status: Discontinued insulin lispro 1 unit, 0.01 mL, Route: SUB-Q, Drug form: SOLN, Bedtime, Dosing Weight 115.909, kg, PRN Blood Glucose Results, Start date: 06/15/17 9:49:00 CDT, Duration: 30 da y, Stop date: 07/15/17 9:48:00 PATTERN CARRIER Notes: Roll in palms of hands gently; Do not shake `vigorously. (Same as: Marj og )"Single Patient Use Only "WASTE: F/P - Black; E - Municipal Trash Bin Stabl e for 28 days at room temperature.Expires in days from Date Start Date: 06/15/17 Stop Date: 06/16/17 Status: Discontinued insulin lispro 2 unit, 0.02 mL, Route: SUB-Q, Drug form: SOLN, Bedtime, Dosing Weight 115.909, kg, PRN Blood Glucose Results, Start date: 06/15/17 9:49:00 CDT, Duration: 30 da y, Stop date: 07/15/17 9:48:00 PATTERN CARRIER Notes: Roll in palms of hands gently; Do not shake `vigorously. (Same as: Humal og )"Single Patient Use Only "WASTE: F/P - Black; E - Municipal Trash Bin Stabl e for 28 days at room temperature.Expires in days from Date Start Date: 06/15/17 Stop Date: 06/16/17 Status: Discontinued insulin lispro 10 unit, 0.1 mL, Route: SUB-Q, Drug form: SOLN, TID-Before Meals, Dosing Weight 115.909, kg, PRN Blood Glucose Results, Start date: 06/15/17 9:49:00 CDT, Durati on: 30 day, Stop date: 07/15/17 9:48:00 PATTERN CARRIER Notes: Roll in palms of hands gently; Do not shake `vigorously. (Same as: Humal og )"Single Patient Use Only "WASTE: F/P - Black; E - Municipal Trash Bin Stabl e for 28 days at room temperature.Expires in days from Date Start Date: 06/15/17 Stop Date: 06/16/17 Status: Discontinued insulin lispro 2 unit, 0.02 mL, Route: SUB-Q, Drug form: SOLN, TID-Before Meals, Dosing Weight 115.909, kg, PRN Blood Glucose Results, Start date: 06/15/17 9:49:00 CDT, Durati on: 30 day, Stop date: 07/15/17 9:48:00 PATTERN CARRIER Notes: Roll in palms of hands gently; Do not shake `vigorously. (Same as: Humal og )"Single Patient Use Only "WASTE: F/P - Black; E - Municipal Trash Bin Stabl e for 28 days at room temperature.Expires in days from Date Start Date: 06/15/17 Stop Date: 06/16/17 Status: Discontinued insulin lispro 6 unit, 0.06 mL, Route: SUB-Q, Drug form: SOLN, TID-Before Meals, Dosing Weight 115.909, kg, PRN Blood Glucose Results, Start date: 06/15/17 9:49:00 CDT, Durati on: 30 day, Stop date: 07/15/17 9:48:00 PATTERN CARRIER Notes: Roll in palms of hands gently; Do not shake `vigorously. (Same as: Humal og )"Single Patient Use Only "WASTE: F/P - Black; E - Municipal Trash Bin Stabl e for 28 days at room temperature.Expires in days from Date Start Date: 06/15/17 Stop Date: 06/16/17 Status: Discontinued insulin lispro 8 unit, 0.08 mL, Route: SUB-Q, Drug form: SOLN, TID-Before Meals, Dosing Weight 115.909, kg, PRN Blood Glucose Results, Start date: 06/15/17 9:49:00 CDT, Durati on: 30 day, Stop date: 07/15/17 9:48:00 PATTERN CARRIER Notes: Roll in palms of hands gently; Do not shake `vigorously. (Same as: Humal og )"Single Patient Use Only "WASTE: F/P - Black; E - Municipal Trash Bin Stabl e for 28 days at room temperature.Expires in days from Date Start Date: 06/15/17 Stop Date: 06/16/17 Status: Discontinued insulin lispro 4 unit, 0.04 mL, Route: SUB-Q, Drug form: SOLN, TID-Before Meals, Dosing Weight 115.909, kg, PRN Blood Glucose Results, Start date: 06/15/17 9:49:00 CDT, Durati on: 30 day, Stop date: 07/15/17 9:48:00 PATTERN CARRIER Notes: Roll in palms of hands gently; Do not shake `vigorously. (Same as: Humal og )"Single Patient Use Only "WASTE: F/P - Black; E - Municipal Trash Bin Stabl e for 28 days at room temperature.Expires in days from Date Start Date: 06/15/17 Stop Date: 06/16/17 Status: Discontinued Levemir 60 unit, SUB-Q, QAM (Insulin), 0 Refill(s) Start Date: 06/15/17 Status: Ordered levocetirizine 5 mg oral tablet 5 mg=1 tab, PO, QPM, 0 Refill(s) Start Date: 06/15/17 Status: Ordered memantine 28 mg, Route: PO, Drug form: ERCAP, Daily, Dosing Weight 115.909, kg, Start date : 06/16/17 9:00:00 CDT, Duration: 30 day, Stop date: 07/15/17 9:00:00 PATTERN CARRIER Start Date: 06/16/17 Stop Date: 06/15/17 Status: Deleted Namenda XR 28 mg oral capsule, extended release 28 mg=1 cap, PO, Daily, # 30 cap, 0 Refill(s) Start Date: 06/15/17 Status: Ordered Olmesartan Medoxomil and HCTZ Olmesartan Medoxomil and HCTZ, 40mg/12.5mg, PO, Daily, Refill(s) 0 Start Date: 06/15/17 Status: Ordered ondansetron 4 mg, 2 mL, Route: IVP, Drug form: INJ, Q6H, Dosing Weight 115.909, kg, PRN Naus ea & Vomiting, Start date: 06/15/17 9:51:00 CDT, Duration: 30 day, Stop date: 07/15/17 9:50:00 PATTERN CARRIER Notes: (Same as: Kaitlin) MEDICATION WASTE Product Size: 4 mgProduct Was kim: ___ mg Start Date: 06/15/17 Stop Date: 06/16/17 Status: Discontinued patient's own NAMENDA XR patient's own NAMENDA XR, 28 mg, Drug form: MISC, Route: PO, Daily, 06/16/17 9:0 0:00 CDT, Duration: 30 day, Stop date: 07/15/17 9:00:00 PATTERN CARRIER Start Date: 06/16/17 Stop Date: 06/16/17 Status: Discontinued PLease Bring Pt's Own Memantin XR to pharmacy for label PLease Bring Pt's Own Memantin XR to pharmacy for label, Reminder, Drug form: ID SC, Route: MISC, Daily, 06/15/17 12:00:00 CDT, Duration: 30 day, Stop date: 01/24 9:00:00 PATTERN CARRIER Start Date: 06/15/17 Stop Date: 06/15/17 Status: Deleted pneumococcal 23-valent vaccine 0.5 mL, Route: IM, Drug Form: INJ, Daily, Start date: 06/15/17 17:00:00 CDT, Dur ation: 1 doses or times, Stop date: 06/15/17 17:00:00 CDT Notes: (Same as: Pneumovax 23) Refrigerate Start Date: 06/15/17 Stop Date: 06/15/17 Status: Deleted Pneumovax 23 0.5 mL, Route: IM, Drug Form: INJ, Daily, Start date: 06/15/17 17:30:00 CDT, Dur ation: 1 doses or times, Stop date: 06/15/17 17:30:00 CDT Notes: (Same as: Pneumovax 23) Refrigerate Start Date: 06/15/17 Stop Date: 06/15/17 Status: Completed Rocephin + sodium chloride 0.9% INJ 100 mL 1 gm, Route: IVPB, [id number], Dosing Weight 115.909, kg, Start date: 06/15/17 11:0 0:00 CDT, Duration: 7 day, Stop date: 06/21/17 11:00:00 CDT, ABX Indication: Uri nary Tract Infection Notes: (Same As: Rocephin).Use with 100 mL NS and infuse over 30 min MEDICA TION WASTE Product Size: 1000 mgProduct Wasted: ___ mg Start Date: 06/15/17 Stop Date: 06/16/17 Status: Discontinued sertraline 50 mg, 1 tab, Route: PO, Drug form: TAB, Daily, Dosing Weight 115.909, kg, Start date: 06/16/17 9:00:00 CDT, Duration: 30 day, Stop date: 07/15/17 9:00:00 PATTERN CARRIER Notes: (Same as: Zoloft) Start Date: 06/16/17 Stop Date: 06/16/17 Status: Discontinued sertraline 50 mg oral tablet 50 mg=1 tab, PO, Daily, 0 Refill(s) Start Date: 06/15/17 Status: Ordered sodium chloride 0.9% 1000 ml INJ 1,000 mL 1,000 mL, Rate: 100 ml/hr, Infuse over: 10 hr, Route: IV, Dosing Weight 115.909 kg, Total Volume: 1,000, Start date: 06/15/17 10:13:00 CDT, Duration: 30 day, St op date: 07/15/17 10:12:00 PATTERN CARRIER Start Date: 06/15/17 Stop Date: 06/16/17 Status: Discontinued Results ELECTROLYTES Most recent to 1 2 oldest [Reference Range]: Sodium Lvl [135-145 143 mEq/L 139 mEq/L mEq/L] (06/16/17 4:29 AM) (06/15/17 3:15 AM) Potassium Lvl 3.7 mEq/L 3.4 mEq/L [3.5-5.1 mEq/L] (06/16/17 4:29 AM) *LOW* (06/15/17 3:15 AM) Chloride Lvl [95-109 110 mEq/L 104 mEq/L mEq/L] *HI* (06/15/17 3:15 AM) (06/16/17 4:29 AM) CO2 [24-32 mEq/L] 27 mEq/L 26 mEq/L (06/16/17 4:29 AM) (06/15/17 3:15 AM) AGAP [10.0-20.0 9.7 mEq/L 12.4 mEq/L mEq/L] *LOW* (06/15/17 3:15 AM) (06/16/17 4:29 AM) CHEM PANEL Most recent to 1 2 oldest [Reference Range]: Creatinine Lvl 0.79 mg/dL 0.87 mg/dL [0.50-1.40 mg/dL] (06/16/17 4:29 AM) (06/15/17 3:15 AM) eGFR 80 mL/min/1.73m2 1 71 mL/min/1.73m2 2 *NA* *NA* (06/16/17 4:29 AM) (06/15/17 3:15 AM) BUN [7-22 mg/dL] 14 mg/dL 20 mg/dL (06/16/17 4:29 AM) (06/15/17 3:15 AM) B/C Ratio [6-25] 23 (06/15/17 3:15 AM) Glucose Lvl [70-99 114 mg/dL 105 mg/dL mg/dL] *HI* *HI* (06/16/17 4:29 AM) (06/15/17 3:15 AM) Total Protein 6.6 g/dL [6.4-8.4 g/dL] (06/15/17 3:15 AM) Albumin Lvl [3.5-5.0 3.4 g/dL g/dL] *LOW* (06/15/17 3:15 AM) Globulin [2.7-4.2 3.2 g/dL g/dL] (06/15/17 3:15 AM) A/G Ratio [0.7-1.6] 1.1 (06/15/17 3:15 AM) Calcium Lvl 7.9 mg/dL 8.7 mg/dL [8.5-10.5 mg/dL] *LOW* (06/15/17 3:15 AM) (06/16/17 4:29 AM) ALT [0-65 unit/L] 14 unit/L (06/15/17 3:15 AM) AST [0-37 unit/L] 17 unit/L (06/15/17 3:15 AM) Alk Phos [39-136 100 unit/L unit/L] (06/15/17 3:15 AM) Bili Total [0.2-1.3 0.6 mg/dL mg/dL] (06/15/17 3:15 AM) 1Result Comment: The eGFR is calculated using [...] be mul tiplied by the estimated BMI. 2Result Comment: The eGFR is calculated using the [...] be mul tiplied by the estimated BMI. CARDIAC ENZYMES Most recent to 1 2 oldest [Reference Range]: Total CK [12-191 95 unit/L unit/L] (06/15/17 3:15 AM) CK MB [0.5-3.6 2.3 ng/mL ng/mL] (06/15/17 3:15 AM) CK MB Index 2.4 [0.0-2.5] (06/15/17 3:15 AM) Troponin-I <0.02 ng/mL [0.00-0.40 ng/mL] (06/15/17 3:15 AM) URINE AND STOOL Most recent to 1 2 oldest [Reference Range]: UA Turbidity [Clear] Clear (06/15/17 11:00 AM) UA Color Ltyellow *NA* (06/15/17 11:00 AM) UA pH [5.0-8.0] 7.0 (06/15/17 11:00 AM) UA Spec Grav 1.004 [<=1.030] (06/15/17 11:00 AM) UA Glucose [Negative Negative mg/dL mg/dL] *NA* (06/15/17 11:00 AM) UA Blood [Negative] Negative (06/15/17 11:00 AM) UA Ketones [Negative Negative mg/dL mg/dL] *NA* (06/15/17 11:00 AM) UA Protein [Negative Negative mg/dL mg/dL] (06/15/17 11:00 AM) UA Urobilinogen <=1.0 mg/dL [0.1-1.0 mg/dL] *NA* (06/15/17 11:00 AM) UA Bili [Negative] Negative *NA* (06/15/17 11:00 AM) UA Leuk Est Negative [Negative] (06/15/17 11:00 AM) UA Nitrite Negative [Negative] (06/15/17 11:00 AM) UA WBC [0-5 /HPF] 2 /HPF (06/15/17 11:00 AM) UA RBC [0-2 /HPF] <1 /HPF (06/15/17 11:00 AM) UA Sq Epi [Few /LPF] Occasional /LPF *NA* (06/15/17 11:00 AM) HEMATOLOGY Most recent to 1 2 oldest [Reference Range]: WBC [3.7-10.4 K/CMM] 6.3 K/CMM 23.9 K/CMM (06/16/17 4:29 AM) *HI* (06/15/17 3:15 AM) RBC [4.20-5.40 4.14 M/CMM 4.57 M/CMM M/CMM] *LOW* (06/15/17 3:15 AM) (06/16/17 4:29 AM) Hgb [12.0-16.0 g/dL] 11.8 g/dL 12.8 g/dL *LOW* (06/15/17 3:15 AM) (06/16/17 4:29 AM) Hct [36.0-48.0 %] 35.3 % 38.3 % *LOW* (06/15/17 3:15 AM) (06/16/17 4:29 AM) MCV [80.0-98.0 fL] 85.2 fL 83.8 fL (06/16/17 4:29 AM) (06/15/17 3:15 AM) MCH [27.0-31.0 pg] 28.6 pg 28.1 pg (06/16/17 4:29 AM) (06/15/17 3:15 AM) MCHC [32.0-36.0 33.6 g/dL 33.5 g/dL g/dL] (06/16/17 4:29 AM) (06/15/17 3:15 AM) RDW [11.5-14.5 %] 13.1 % 13.3 % (06/16/17 4:29 AM) (06/15/17 3:15 AM) Platelet [133-450 184 K/CMM 198 K/CMM K/CMM] (06/16/17:29 AM) (06/15/17 3:15 AM) MPV [7.4-10.4 fL] 9.5 fL 9.4 fL (06/16/17 4:29 AM) (06/15/17 3:15 AM) Segs [45.0-75.0 %] 50.8 % 86.9 % (06/16/17 4:29 AM) *HI* (06/15/17 3:15 AM) Lymphocytes 35.3 % 6.0 % [20.0-40.0 %] (06/16/17 4:29 AM) *LOW* (06/15/17 3:15 AM) Monocytes [2.0-12.0 7.3 % 6.3 % %] (06/16/17 4:29 AM) (06/15/17 3:15 AM) Eosinophils [0.0-4.0 5.7 % 0.6 % %] *HI* (06/15/17 3:15 AM) (06/16/17 4:29 AM) Basophils [0.0-1.0 0.9 % 0.2 % %] (06/16/17 4:29 AM) (06/15/17 3:15 AM) Segs-Bands # 3.2 K/CMM 20.8 K/CMM [1.5-8.1 K/CMM] (06/16/17 4:29 AM) *HI* (06/15/17 3:15 AM) Lymphocytes # 2.2 K/CMM 1.4 K/CMM [1.0-5.5 K/CMM] (06/16/17 4:29 AM) (06/15/17 3:15 AM) Monocytes # [0.0-0.8 0.5 K/CMM 1.5 K/CMM K/CMM] (06/16/17 4:29 AM) *HI* (06/15/17 3:15 AM) Eosinophils # 0.4 K/CMM 0.1 K/CMM [0.0-0.5 K/CMM] (06/16/17 4:29 AM) (06/15/17 3:15 AM) Basophils # [0.0-0.2 0.1 K/CMM 0.1 K/CMM K/CMM] (06/16/17 4:29 AM) (06/15/17 3:15 AM) PT [12.0-14.7 17.1 seconds seconds] *HI* (06/15/17 3:15 AM) INR [0.85-1.17] 1.37 *HI* (06/15/17 3:15 AM) PTT [22.9-35.8 49.8 seconds seconds] *HI* (06/15/17 3:15 AM) Immunizations Given and Recorded Vaccine Date Status Refusal Reason influenza virus vaccine, inactivated 06/16/17 Given pneumococcal 23-valent vaccine 06/15/17 Given Procedures Procedure Date Related Diagnosis Body Site section1 Endarterectomy2 Knee replacement3 1x 4 2right side 3bilateral Social History Social History Type Response Smoking Status Never smoker; Exposure to Tobacco Smoke None; Cigarette Smoking Last 365 Days No; Reg Smoking Cessation Counseling No Assessment and Plan Extracted from: Title: Discharge Summary * Author: David Vilchis DO [...] regarding diagnosis, regarding treatment, regarding medications. Extracted from: Title: General Admission H&P * Author: David Vilchis [...]
--- OUTSIDE RECORDS SUMMARY | 2019-03-11 10:53 | XMS REPORT | Summary of Care ---
Author Author [facility] Organization [facility] Address Unknown Phone Unavailable Care Team Providers Care Labor Supervisor Name Role Phone Mazin Lea PCP Encounter [facility] Anibal(FIN) [phone] Date(s): 01/03/19 - 01/04/19 [facility] [address] [place] [address]- Encounter Diagnosis Near syncope (Discharge Diagnosis) - 01/04/19 Discharge Disposition: Home or Self Care Attending Physician: Jaycee Mcdowell MD Vital Signs 1 2 3 Most recent to oldest [Reference Range]: 98.1 DegF (01/03/19 9:11 PM) Temperature Oral [96.4-99.1 DegF] 130/61 mmHg (01/04/19 12:46 AM) 123/66 mmHg (01/03/19 11:34 PM) 127/64 mmHg (01/03/19 9:11 PM) Blood Pressure [90-140/60-90 mmHg] 16 BRMIN (01/04/19 12:46 AM) 16 BRMIN (01/03/19 11:34 PM) 16 BRMIN (01/03/19 9:11 PM) Respiratory Rate [14-20 BRMIN] 89 bpm (01/04/19 12:46 AM) 88 bpm (01/03/19 11:34 PM) 87 bpm (01/03/19 9:11 PM) Peripheral Pulse Rate [60-100 bpm] Problem List Condition Effective Dates Status Health Status Informant Dementia(Confirmed) Active Diabetes(Confirmed) Active Hypertension(Confirm Active ed) TIA (transient Resolved ischemic attack)(Confirmed) Allergies, Adverse Reactions, Alerts No Known Medication Allergies Medications Saline Flush 0.9% 10 mL, Route: IVP, Drug Form: INJ, Dosing Weight 118.182, kg, PRN, PRN Line Flus h, Start date: 01/03/19 21:28:00 CDT, Duration: 30 day, Stop date: 02/02/19 21:2 7:00 CDT Notes: (Same as: BD Posiflush) Start Date: 01/03/19 Stop Date: 01/04/19 Status: Discontinued Results Most recent to 1 oldest [Reference Range]: Neutrophils # 7.8 K/CMM [1.5-8.1 K/CMM] (01/03/19 10:11 PM) Lymphocytes # 1.0 K/CMM [1.0-5.5 K/CMM] (01/03/19 10:11 PM) Monocytes # [0.0-0.8 0.7 K/CMM K/CMM] (01/03/19 10:11 PM) Eosinophils # 0.1 K/CMM [0.0-0.5 K/CMM] (01/03/19 10:11 PM) BNP [<=100 pg/mL] 112 pg/mL *HI* (01/03/19 10:11 PM) eGFR 65 mL/min/1.73m2 1 *NA* (01/03/19 10:11 PM) A/G Ratio [0.7-1.6] 1.1 (01/03/19 10:11 PM) Albumin Lvl [3.5-5.0 3.6 g/dL g/dL] (01/03/19 10:11 PM) Alk Phos [39-136 94 unit/L unit/L] (01/03/19 10:11 PM) ALT [0-65 unit/L] 23 unit/L (01/03/19 10:11 PM) AGAP [10.0-20.0 10.5 mEq/L mEq/L] (01/03/19 10:11 PM) AST [0-37 unit/L] 12 unit/L (01/03/19 10:11 PM) B/C Ratio [6-25] 17 (01/03/19 10:11 PM) Basophils [0.0-1.0 0.3 % %] (01/03/19 10:11 PM) BUN [7-22 mg/dL] 16 mg/dL (01/03/19 10:11 PM) Calcium Lvl 9.2 mg/dL [8.5-10.5 mg/dL] (01/03/19 10:11 PM) Chloride Lvl [95-109 106 mEq/L mEq/L] (01/03/19 10:11 PM) CO2 [24-32 mEq/L] 28 mEq/L (01/03/19 10:11 PM) Creatinine Lvl 0.93 mg/dL [0.50-1.40 mg/dL] (01/03/19 10:11 PM) Eosinophils [0.0-4.0 1.2 % %] (01/03/19 10: PM) Globulin [2.7-4.2 3.4 g/dL g/dL] (01/03/19:11 PM) Glucose Lvl [70-99 149 mg/dL mg/dL] *HI* (01/03/19: PM) Hct [36.0-48.0 %] 37.9 % (01/03/19: PM) Hgb [12.0-16.0 g/dL] 12.7 g/dL (01/03/19:11 PM) Potassium Lvl 3.5 mEq/L [3.5-5.1 mEq/L] (01/03/19: PM) Lymphocytes 10.8 % [20.0-40.0 %] *LOW* (01/03/19: PM) MCH [27.0-31.0 pg] 28.9 pg (01/03/19: PM) MCHC [32.0-36.0 33.5 g/dL g/dL] (01/03/19:11 PM) MCV [80.0-98.0 fL] 86.3 fL (01/03/19 10:11 PM) Monocytes [2.0-12.0 7.3 % %] (01/03/19 10:11 PM) MPV [7.4-10.4 fL] 8.9 fL (01/03/19 10:11 PM) Sodium Lvl [135-145 141 mEq/L mEq/L] (01/03/19 10:11 PM) Platelet [133-450 225 K/CMM K/CMM] (01/03/19 10:11 PM) Segs [45.0-75.0 %] 80.4 % *HI* (01/03/19 10:11 PM) Total Protein 7.0 g/dL [6.4-8.4 g/dL] (01/03/19 10:11 PM) RBC [4.20-5.40 4.39 M/CMM M/CMM] (01/03/19 10:11 PM) RDW [11.5-14.5 %] 13.3 % (01/03/19 10:11 PM) Bili Total [0.2-1.3 1.1 mg/dL mg/dL] (01/03/19 10:11 PM) Troponin-I <0.02 ng/mL [0.00-0.40 ng/mL] (01/03/19 10:11 PM) UA Bili [Negative] Negative *NA* (01/04/19 12:52 AM) UA Blood [Negative] Negative (01/04/19 12:52 AM) UA Color [Yellow] Yellow *NA* (01/04/19 12:52 AM) UA Glucose [Negative Negative mg/dL mg/dL] *NA* (01/04/19 12:52 AM) UA Hyal Cast [0-2 20 /LPF /LPF] *HI* (01/04/19 12:52 AM) UA Ketones [Negative Trace mg/dL mg/dL] *ABN* (01/04/19 12:52 AM) UA Leuk Est Negative [Negative] (01/04/19 12:52 AM) UA Mucus [None Seen Few /LPF /LPF] *NA* (01/04/19 12:52 AM) UA Nitrite Negative [Negative] (01/04/19 12:52 AM) UA pH [5.0-8.0] 5.0 (01/04/19 12:52 AM) UA Protein [Negative Negative mg/dL mg/dL] (01/04/19 12:52 AM) UA RBC [0-2 /HPF] 2 /HPF (01/04/19 12:52 AM) UA Spec Grav 1.020 [<=1.030] (01/04/19 12:52 AM) UA Sq Epi [Few /LPF] Occasional /LPF *NA* (01/04/19 12:52 AM) UA Turbidity [Clear] Clear (01/04/19 12:52 AM) UA Urobilinogen <=1.0 mg/dL [0.1-1.0 mg/dL] *NA* (01/04/19 12:52 AM) UA WBC [0-5 /HPF] 2 /HPF (01/04/19 12:52 AM) WBC [3.7-10.4 K/CMM] 9.7 K/CMM (01/03/19 10:11 PM) 1Result Comment: The eGFR is calculated [...]
[2019-03-11 11:59] LABS: BASOPHILS % 0.3 % (0.0-1.0); HEMATOCRIT 32.6 % (34.2-44.1); HEMOGLOBIN 10.7 g/dL (12.0-16.0); LYMPHOCYTES # (AUTO) 0.7 (1.0-3.2); LYMPHOCYTES % 6.5 % (18.0-39.1); MEAN CORPUSCULAR HEMOGLOBIN 28.2 pg (28-32); MEAN CORPUSCULAR HGB CONC 32.8 g/dL (31-35); MEAN CORPUSCULAR VOLUME 85.8 fL (81-99); MONOCYTES % 8.6 % (4.4-11.3); NEUTROPHILS # (AUTO) 9.5 (2.1-6.9); NEUTROPHILS % 84.2 % (38.7-80.0); PLATELET COUNT 206 x10e3/uL (140-360); RED CELL DISTRIBUTION WIDTH 12.4 % (11.7-14.4)
[2019-03-11 12:22] LABS: ALANINE AMINOTRANSFERASE 13 IU/L (0-55); ALBUMIN 2.9 g/dL (3.5-5.0); ALKALINE PHOSPHATASE 60 IU/L (40-150); AMYLASE 25 U/L (25-125); ANION GAP 10.3 mmol/L (8-16); BLOOD UREA NITROGEN 14 mg/dL (7-26); BUN/CREATININE RATIO 16 (6-25); CALCIUM 8.4 mg/dL (8.4-10.2); CARBON DIOXIDE 29 mmol/L (22-29); CHLORIDE 99 mmol/L (98-107); CREATINE KINASE 106 IU/L (29-168); CREATININE, SERUM 0.87 mg/dL (0.57-1.11); EST GLOMERULAR FILTRATION RATE > 60 ML/MIN (60-); GLUCOSE 93 mg/dL (74-118); LIPASE 10 U/L (8-78); POTASSIUM 3.3 mmol/L (3.5-5.1); SODIUM 135 mmol/L (136-145)
[2019-03-11 12:31] LABS: B-TYPE NATRIURETIC PEPTIDE2 426.9 pg/mL (0-100)
[2019-03-11 12:59] LABS: PREGNANCY TEST, URINE NEGATIVE (NEGATIVE)
[2019-03-11 13:02] LABS: BILIRUBIN,URINE NEGATIVE (NEGATIVE); CLARITY,URINE SL CLOUDY (CLEAR); COLOR,URINE YELLOW (YELLOW); KETONES,URINE NEGATIVE (NEGATIVE); LEUKOCYTE ESTERASE ,URINE SMALL (NEGATIVE); NITRITE,URINE NEGATIVE (NEGATIVE); PROTEIN,URINE DIPSTICK 2+ (NEGATIVE); URINE UROBILINOGEN 1 mg/dL (0.2 - 1)
--- NOTE | 2019-03-11 13:06 | Diagnostic Imaging Report ---
Exam: Head CT without contrast History: Altered mental status, generalized weakness Comparison studies: No prior exams are available on the PACS at the time of dictation. Technique: Axial images were obtained from the skull base to the vertex. Coronal and sagittal images reconstructed from the axial data. Dose modulation, iterative reconstruction, and/or weight based adjustment of the mA/kV was utilized to reduce the radiation dose to as low as reasonably achievable. Radiation dose: Total DLP: 832 mGy*cm. Estimated effective dose: DLP x 0.015 Intravenous contrast: None Findings: Scalp: No abnormalities. Bones: No fractures, blastic or lytic lesions. Ventricles: Moderately dilated lateral and third ventricles, increased from the 06/11/2014 exam. Extra-axial spaces: No masses, no fluid collection. Parenchyma: There is generalized volume loss with a frontotemporal predominance with moderate disproportionate volume loss in the bilateral frontal lobes and left temporal lobe. A few scattered hypodensities in the supratentorial white matter are nonspecific but most compatible with chronic microvascular ischemic changes. Confluent hypodense changes present in the periventricular are nonspecific but may may reflect chronic microvascular ischemic or age-related changes or possibly transependymal flow CSF related 2 commuting indicating hydrocephalus. Sellar/suprasellar region: No abnormalities. Craniocervical junction: Patent foramen magnum. No Chiari one malformation. Incidental findings: Atherosclerotic calcifications in the carotid siphons. An in the left intradural vertebral artery. IMPRESSION: 1. No mass, acute hemorrhage or acute cortical infarct. 2. Ventriculomegaly with nonspecific periventricular hypodense changes as described, increased since the 2014 exams. Findings raise the possibility for nonspecific communicating hydrocephalus. 3. Chronic microvascular ischemic changes. 4. Generalized volume loss with a frontotemporal predominance have also progressed from the 06/11/2014 MRI. Similar findings can be seen with frontotemporal dementia spectrum in the appropriate clinical setting. Consider lumbar puncture and CSF analysis to further evaluate. Findings an recommendations were discussed with [employer] Erin Cerrato at 12:58 PM on 03/11/2019. Signed by: Dr. Zenon Chavez M.D. on 03/11/2019 1:03 PM
[2019-03-11 13:10] LABS: BACTERIA,URINE MANY /HPF
--- NOTE | 2019-03-11 13:14 | NUR ---
RADIOLOGY AT BEDSIDE FOR CXR AT THIS TIME.
[2019-03-11] MEDS ORDERED: CEFTRIAXONE SOD 1 GM/NS 50 ML 50 ML IV NR (13:45)
[2019-03-11] MEDS ORDERED: ONDANSETRON HCL INJ 2MG/ML 2ML 2 MG/ML VIAL IV PRN (14:30)
[2019-03-11] MEDS ORDERED: MORPHINE SULFATE INJ 4 MG/ML INJ 1ML IV PRN (14:30)
[2019-03-11] MEDS ORDERED: ASPIRIN 81 MG CHEW TAB PO ONE (14:30)
--- NOTE | 2019-03-11 14:45 | NUR ---
PT GIVEN TURKEY SANDWICH AND DIET LEMON-CONFEDERATED SALISH SODA, TOLERATING WELL AT THIS TIME.
--- NOTE | 2019-03-11 16:23 | Diagnostic Imaging Report ---
EXAMINATION: CHEST SINGLE (PORTABLE) INDICATION: Altered mental status COMPARISON: Chest radiograph from 06/17/2014 FINDINGS: TUBES and LINES: None. LUNGS: The lung volumes are normal. There is left basilar opacity silhouetting the left charanjit diaphragm. PLEURA: No pleural effusion or pneumothorax. HEART AND MEDIASTINUM: The cardiomediastinal silhouette is normal in size and contour. BONES AND SOFT TISSUES: No acute fracture or dislocation. UPPER ABDOMEN: No free air under the diaphragm. IMPRESSION: Patchy opacity at the left lung base may represent aspiration or pneumonia in the proper clinical setting. Signed by: Claudia Rider MD on 03/11/2019 4:19 PM
--- OUTSIDE RECORDS SUMMARY | 2019-03-11 17:09 | XMS REPORT | Continuity of Care Document ---
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 Role Phone Crono Information [email or web address] Unavailable Unavailable Problems Problem Status Onset Date Classification Date Reported Comments Source Near syncope 01/04/2019 01/06/2019 [facility] DIARRHEA Active 01/03/2019 [facility] Diarrhea, unspecified 08/29/2018 03/10/2019 [facility] Diarrhea 08/20/2018 03/10/2019 [facility] Generalized weakness 08/20/2018 03/10/2019 [facility] AMS Active 08/20/2018 [facility] HYPOGLYCEMIA Active 06/15/2017 [facility] AT RISK FOR HYPOGLYCEMIA Active 06/15/2017 [facility] Dementia Active Problem 03/10/2019 [facility] Diabetes Active Problem 03/10/2019 [facility] Hypertension Active Problem 03/10/2019 [facility] TIA (Confirmed) Resolved Problem 03/10/2019 [facility] Weakness 03/10/2019 [facility] Syncope and collapse 03/10/2019 [facility] Type 2 diabetes mellitus without complications 03/10/2019 [facility] Essential hypertension 03/10/2019 [facility] Unspecified dementia without behavioral disturbance 03/10/2019 [facility] Hyperlipidemia, unspecified 03/10/2019 [facility] Christiano coma scale score 13-15, unspecified time 03/10/2019 [facility] Dehydration 03/10/2019 [facility] Elevated white blood cell count, unspecified 03/10/2019 [facility] correction use of insulin 03/10/2019 [facility] Other halfway drug therapy 03/10/2019 [facility] Personal history of transient ischemic attack , and cerebral infarction without residual deficits 03/10/2019 [facility] OTH PERSONAL RISK FACTORS, NOT ELSEWHERE Active [facility] Medications Medication Details Route Status Patient Instructions Ordering Provider Order Date Source Saline Flush 0.9% 10 mL, Route: IVP, Drug Form: INJ, Dosing Weight 118.182, kg, PRN, PRN Line Flush, Start date: 01/03/19 21:28:00 CDT, Duration: 30 day, Stop date: 02/02/19 21:27:00 CDTNotes: (Same as: BD Posiflush) No Longer Active 01/04/2019 [facility] Metronidazole 500 MG Oral Tablet [Flagyl] 500 mg=1 tab, PO, BID, X 10 day, # 20 tab, 0 Refill(s) No Longer Active 08/21/2018 [facility] Sodium Chloride 0.9% (Bolus) IV 1,000 mL, 1000 ml/hr, Infuse Over: 1 hr, Route: IV, 1,000, Drug form: INJ, ONCE, Priority: STAT, Dosing Weight 118.182 kg, Start date: 08/20/18 18:27:00 NUMERICAL CONTROL MACHINE OPERATOR, Stop date: 08/20/18 18:27:00 NUMERICAL CONTROL MACHINE OPERATOR Inactive 08/21/2018 [facility] patient's own NAMENDA XR patient's own NAMENDA XR, 28 mg, Drug form: MISC, Route: PO, Daily, 06/16/17 9:00:00 CDT, Duration: 30 day, Stop date: 07/15/17 9:00:00 NUMERICAL CONTROL MACHINE OPERATOR Inactive 06/16/2017 [facility] influenza virus vaccine, inactivated 0.5 mL, Route: IM, Drug Form: SUSP, Daily, Start date: 06/16/17 9:00:00 CDT, Duration: 1 doses or times, Stop date: 06/16/17 9:00:00 CDTNotes: (Same as: Fluzone Quadrivalent, Fluarix Quadrivalent) For 3 years of age and older (0.5 mL IM) Shake well before use Inactive 06/16/2017 [facility] Sertraline 50 mg, 1 tab, Route: PO, Drug form: TAB, Daily, Dosing Weight 115.909, kg, Start date: 06/16/17 9:00:00 CDT, Duration: 30 day, Stop date: 07/15/17 9:00:00 CSTNotes: (Same as: Zoloft) Inactive 06/16/2017 [facility] Memantine 28 mg, Route: PO, Drug form: ERCAP, Daily, Dosing Weight 115.909, kg, Start date: 06/16/17 9:00:00 CDT, Duration: 30 day, Stop date: 07/15/17 9:00:00 NUMERICAL CONTROL MACHINE OPERATOR No Longer Active 06/16/2017 [facility] Hydralazine Hydrochloride 50 MG Oral Tablet 50 mg, 1 tab, Route: PO, Drug form: TAB, BID, Dosing Weight 115.909, kg, Start date: 06/15/17 21:00:00 CDT, Duration: 30 day, Stop date: 07/15/17 9:00:00 CSTNotes: (Same as: Apresoline) May interfere w/enteral feedings Take With Food No Longer Active 06/16/2017 [facility] donepezil 10 mg, 2 tab, Route: PO, Drug form: TAB, Bedtime, Dosing Weight 115.909, kg, Start date: 06/15/17 21:00:00 CDT, Duration: 30 day, Stop date: 07/14/17 21:00:00 CDTNotes: (Same as: Aricept) No Longer Active 06/16/2017 [facility] atorvastatin 20 mg, 2 tab, Route: PO, Drug form: TAB, Daily, Dosing Weight 115.909, kg, Start date: 06/15/17 21:00:00 CDT, Duration: 30 day, Stop date: 07/14/17 21:00:00 CDTNotes: (Same As: Lipitor) No Longer Active 06/16/2017 [facility] Pneumovax 23 0.5 mL, Route: IM, Drug Form: INJ, Daily, Start date: 06/15/17 17:30:00 CDT, Duration: 1 doses or times, Stop date: 06/15/17 17:30:00 CDTNotes: (Same as: Pneumovax 23) Refrigerate Inactive 06/15/2017 [facility] Ciprofloxacin 500 MG Oral Tablet [Cipro] 500 mg=1 tab, PO, Q12H, for UTI, X 3 day, # 6 tab, 0 Refill(s) No Longer Active 06/15/2017 [facility] pneumococcal capsular polysaccharide type 1 vaccine / pneumococcal capsular polysaccharide type 10A vaccine / pneumococcal capsular polysaccharide type 11A vaccine / pneumococcal capsular polysaccharide type 12F vaccine / pneumococcal capsular polysacchar 0.5 mL, Route: IM, Drug Form: INJ, Daily, Start date: 06/15/17 17:00:00 CDT, Duration: 1 doses or times, Stop date: 06/15/17 17:00:00 CDTNotes: (Same as: Pneumovax 23) Refrigerate Inactive 06/15/2017 [facility] Docusate 100 mg, 1 cap, Route: PO, Drug form: CAP, BID, Dosing Weight 115.909, kg, Start date: 06/15/17 17:00:00 CDT, Duration: 30 day, Stop date: 07/15/17 9:00:00 CSTNotes: (Same as: Colace) (Do Not Crush) No Longer Active 06/15/2017 [facility] PLease Bring Pt's Own Memantin XR to pharmacy for label PLease Bring Pt's Own Memantin XR to pharmacy for label, Reminder, Drug form: MISC, Route: MISC, Daily, 06/15/17 12:00:00 CDT, Duration: 30 day, Stop date: 07/15/17 9:00:00 NUMERICAL CONTROL MACHINE OPERATOR Inactive 06/15/2017 [facility] Humalog 8 unit, SUB-Q, QAM, 0 Refill(s) Active 06/15/2017 [facility] Levemir 60 unit, SUB-Q, QAM (Insulin), 0 Refill(s) Active 06/15/2017 [facility] Rocephin 1 gm, Route: IVPB, [id number], Dosing Weight 115.909, kg, Start date: 06/15/17 11:00:00 CDT, Duration: 7 day, Stop date: 06/21/17 11:00:00 CDT, ABX Indication: Urinary Tract InfectionNotes: (Same As: Rocephin). Use with 100 mL NS and infuse over 30 min MEDICATION WASTE Product Size: 1000 mg Product Wasted: ___ mg No Longer Active 06/15/2017 [facility] sodium chloride 0.9% 1000 ml INJ 1,000 mL 1,000 mL, Rate: 100 ml/hr, Infuse over: 10 hr, Route: IV, Dosing Weight 115.909 kg, Total Volume: 1,000, Start date: 06/15/17 10:13:00 CDT, Duration: 30 day, Stop date: 07/15/17 10:12:00 NUMERICAL CONTROL MACHINE OPERATOR No Longer Active 06/15/2017 [facility] Enoxaparin 40 mg, 0.4 mL, Route: SUB-Q, Drug form: INJ, [id number], Dosing Weight 115.909, kg, Consider for obese patients, Start date: 06/15/17 10:00:00 CDT, Duration: 30 day, Stop date: 07/14/17 22:00:00 CDTNotes: (Same as: Lovenox) No Longer Active 06/15/2017 [facility] Ondansetron 4 mg, 2 mL, Route: IVP, Drug form: INJ, Q6H, Dosing Weight 115.909, kg, PRN Nausea & Vomiting, Start date: 06/15/17 9:51:00 CDT, Duration: 30 day, Stop date: 07/15/17 9:50:00 CSTNotes: (Same as: Kaitlin) MEDICATION WASTE Product Size: 4 mg Product Wasted: ___ mg No Longer Active 06/15/2017 [facility] Insulin Lispro 4 unit, 0.04 mL, [...] days from Date No Longer Active 06/15/2017 [facility] Glucagon 1 mg, Route: IM, Drug form: PDR/INJ, PRN, Dosing Weight 115.909, kg, PRN Blood Glucose Results, Start date: 06/15/17 9:49:00 CDT, Duration: 30 day, Stop date: 07/15/17 8:48:00 NUMERICAL CONTROL MACHINE OPERATOR No Longer Active 06/15/2017 [facility] Dextrose 50% Syringe 12.5 gm, 25 mL, Route: IVP, Drug Form: INJ, Dosing Weight 115.909, kg, PRN, PRN Blood Glucose Results, Start date: 06/15/17 9:49:00 CDT, Duration: 30 day, Stop date: 07/15/17 8:48:00 NUMERICAL CONTROL MACHINE OPERATOR No Longer Active 06/15/2017 [facility] sertraline 50 mg oral tablet 50 mg=1 tab, PO, Daily, 0 Refill(s) Active 06/15/2017 [facility] Glipizide 5 MG Oral Tablet 5 mg=1 tab, PO, BID, 0 Refill(s) Active 06/15/2017 [facility] Olmesartan Medoxomil and HCTZ Olmesartan Medoxomil and HCTZ, 40mg/12.5mg, PO, Daily, Refill(s) 0 Active 06/15/2017 [facility] levocetirizine 5 mg oral tablet 5 mg=1 tab, PO, QPM, 0 Refill(s) Active 06/15/2017 [facility] Hydralazine Hydrochloride 50 MG Oral Tablet 50 mg=1 tab, PO, BID, 0 Refill(s) Active 06/15/2017 [facility] atorvastatin 20 mg oral tablet 20 mg=1 tab, PO, Daily, 0 Refill(s) Active 06/15/2017 [facility] 24 HR Memantine hydrochloride 28 MG Extended Release Capsule [Namenda] 28 mg=1 cap, PO, Daily, # 30 cap, 0 Refill(s) Active 06/15/2017 [facility] donepezil 10 mg oral tablet 10 mg=1 tab, PO, Bedtime, 0 Refill(s) Active 06/15/2017 [facility] D5W 1/2NS 1,000 mL 1,000 mL, Rate: 150 ml/hr, Infuse over: 6.7 hr, Route: IV, Dosing Weight 115.909 kg, Total Volume: 1,000, Start date: 06/15/17 5:31:00 CDT, Duration: 30 day, Stop date: 07/15/17 5:30:00 NUMERICAL CONTROL MACHINE OPERATOR Inactive 06/15/2017 [facility] Dextrose 50% Syringe 25 gm, Route: IVP, Dosing Weight 113.636, kg, ONCE, Start date: 06/15/17 5:30:00 CDT, Stop date: 06/15/17 5:30:00 CDT Inactive 06/15/2017 [facility] D5W 1/2NS 1,000 mL 1,000 mL, Rate: 75 ml/hr, Infuse over: 13.3 hr, Route: IV, Dosing Weight 113.636 kg, Total Volume: 1,000, Priority: STAT, Start date: 06/15/17 4:05:00 CDT, Duration: 30 day, Stop date: 07/15/17 4:04:00 NUMERICAL CONTROL MACHINE OPERATOR Inactive 06/15/2017 [facility] Allergies, Adverse Reactions, Alerts Substance Category Reaction Severity Reaction type Status Date Reported Comments Source No Known Medication Allergies Assertion Drug allergy [facility] Immunizations Immunization Date Given Site Status Last Updated Comments Source influenza virus vaccine, inactivated 06/16/2017 Left Deltoid completed [facility] pneumococcal 23-valent vaccine 06/15/2017 Right Deltoid completed [facility] Results Order Name Results Value Reference Range Date Interpretation Comments Source URINE AND STOOL UA Urobilinogen <=1.0 mg/dL 0.1 - 1.0 01/04/2019 [facility] URINE AND STOOL UA Blood Negative (01/04/19 12:52 AM) Negative 01/04/2019 [facility] URINE AND STOOL UA Hyal Cast 20 0 - 2 01/04/2019 [facility] URINE AND STOOL UA Mucus Few /LPF None Seen /LPF 01/04/2019 [facility] URINE AND STOOL UA RBC 2 0 - 2 01/04/2019 [facility] URINE AND STOOL UA WBC 2 0 - 5 01/04/2019 [facility] URINE AND STOOL UA Sq Epi Occasional /LPF Few /LPF 01/04/2019 [facility] URINE AND STOOL UA Leuk Est Negative (01/04/19 12:52 AM) Negative 01/04/2019 [facility] URINE AND STOOL UA Nitrite Negative (01/04/19 12:52 AM) Negative 01/04/2019 [facility] URINE AND STOOL UA Spec Grav 1.020 <=1.030 01/04/2019 [facility] URINE AND STOOL UA Turbidity Clear (01/04/19 12:52 AM) Clear 01/04/2019 [facility] URINE AND STOOL UA Color Yellow *NA* (01/04/19 12:52 AM) Yellow 01/04/2019 [facility] URINE AND STOOL UA Ketones Trace mg/dL Negative mg/dL 01/04/2019 [facility] URINE AND STOOL UA Bili Negative *NA* (01/04/19 12:52 AM) Negative 01/04/2019 [facility] URINE AND STOOL UA Glucose Negative mg/dL Negative mg/dL 01/04/2019 [facility] URINE AND STOOL UA pH 5.0 5.0 - 8.0 01/04/2019 [facility] URINE AND STOOL UA Protein Negative mg/dL Negative mg/dL 01/04/2019 [facility] CARDIAC ENZYMES BNP 112 <=100 pg/mL 01/04/2019 [facility] CARDIAC ENZYMES Troponin-I <0.02 0.00 - 0.40 01/04/2019 [facility] CHEM PANEL A/G Ratio 1.1 0.7 - 1.6 01/04/2019 [facility] CHEM PANEL Globulin 3.4 2.7 - 4.2 01/04/2019 [facility] CHEM PANEL B/C Ratio 17 6 - 25 01/04/2019 [facility] CHEM PANEL AGAP 10.5 10.0 - 20.0 01/04/2019 [facility] CHEM PANEL eGFR 65 01/04/2019 Result [...] should be multiplied by the estimated BMI. [facility] CHEM PANEL BUN 16 7 - 22 01/04/2019 [facility] CHEM PANEL Potassium Lvl 3.5 3.5 - 5.1 01/04/2019 [facility] CHEM PANEL Sodium Lvl 141 135 - 145 01/04/2019 [facility] CHEM PANEL Creatinine Lvl 0.93 0.50 - 1.40 01/04/2019 [facility] CHEM PANEL Calcium Lvl 9.2 8.5 - 10.5 01/04/2019 [facility] CHEM PANEL CO2 28 24 - 32 01/04/2019 [facility] CHEM PANEL Chloride Lvl 106 95 - 109 01/04/2019 [facility] CHEM PANEL Bili Total 1.1 0.2 - 1.3 01/04/2019 [facility] CHEM PANEL Alk Phos 94 39 - 136 01/04/2019 [facility] CHEM PANEL AST 12 0 - 37 01/04/2019 [facility] CHEM PANEL ALT 23 0 - 65 01/04/2019 [facility] CHEM PANEL Albumin Lvl 3.6 3.5 - 5.0 01/04/2019 [facility] CHEM PANEL Total Protein 7.0 6.4 - 8.4 01/04/2019 [facility] CHEM PANEL Glucose Lvl 149 70 - 99 01/04/2019 [facility] HEMATOLOGY Basophils 0.3 0.0 - 1.0 01/04/2019 [facility] HEMATOLOGY Lymphocytes # 1.0 1.0 - 5.5 01/04/2019 [facility] HEMATOLOGY Monocytes 7.3 2.0 - 12.0 01/04/2019 [facility] HEMATOLOGY Lymphocytes 10.8 20.0 - 40.0 01/04/2019 [facility] HEMATOLOGY Eosinophils 1.2 0.0 - 4.0 01/04/2019 [facility] HEMATOLOGY Eosinophils # 0.1 0.0 - 0.5 01/04/2019 [facility] Monocytes # 0.7 0.0 - 0.8 01/04/2019 [facility] Neutrophils # 7.8 1.5 - 8.1 01/04/2019 [facility] Segs 80.4 45.0 - 75.0 01/04/2019 [facility] Platelet 225 133 - 450 01/04/2019 [facility] RDW 13.3 11.5 - 14.5 01/04/2019 [facility] MPV 8.9 7.4 - 10.4 01/04/2019 [facility] MCH 28.9 27.0 - 31.0 01/04/2019 [facility] MCHC 33.5 32.0 - 36.0 01/04/2019 [facility] Hct 37.9 36.0 - 48.0 01/04/2019 [facility] MCV 86.3 80.0 - 98.0 01/04/2019 [facility] RBC 4.39 4.20 - 5.40 01/04/2019 [facility] WBC 9.7 3.7 - 10.4 01/04/2019 [facility] Hgb 12.7 12.0 - 16.0 01/04/2019 [facility] CARDIAC ENZYMES Troponin-I <0.02 0.00 - 0.40 08/21/2018 [facility] CARDIAC ENZYMES Total CK 59 12 - 191 08/21/2018 [facility] CHEM PANEL Lipase Lvl 166 73 - 393 08/21/2018 [facility] CHEM PANEL eGFR 43 08/21/2018 Result [...] PANEL ALT 22 0 - 65 08/21/2018 [facility] CHEM PANEL Bili Total 1.4 0.2 [...] PANEL AGAP 13.0 10.0 - 20.0 08/21/2018 [facility] PT 13.9 12.0 - 14.7 08/21/2018 [facility] INR 1.09 0.85 - 1.17 08/21/2018 [facility] PTT 35.8 22.9 - 35.8 08/21/2018 [facility] Hgb 13.5 12.0 - 16.0 08/21/2018 [facility] Hct 41.1 36.0 - 48.0 08/21/2018 [facility] MCV 87.8 80.0 - 98.0 08/21/2018 [facility] MCH 28.8 27.0 - 31.0 08/21/2018 [facility] RBC 4.68 4.20 - 5.40 08/21/2018 [facility] WBC 11.6 3.7 - 10.4 08/21/2018 [facility] MCHC 32.8 32.0 - 36.0 08/21/2018 [facility] RDW 13.2 11.5 - 14.5 08/21/2018 [facility] Platelet 199 133 - 450 08/21/2018 [facility] MPV 10.1 7.4 - 10.4 08/21/2018 [facility] Lymphocytes 5.3 20.0 - 40.0 08/21/2018 [facility] Segs 87.3 45.0 - 75.0 08/21/2018 [facility] Monocytes 7.0 2.0 - 12.0 08/21/2018 [facility] Eosinophils 0.2 0.0 - 4.0 08/21/2018 [facility] Lymphocytes # 0.6 1.0 - 5.5 08/21/2018 [facility] Basophils 0.2 0.0 - 1.0 08/21/2018 [facility] Neutrophils # 10.1 1.5 - 8.1 08/21/2018 [facility] Monocytes # 0.8 0.0 - 0.8 08/21/2018 [facility] CHEM PANEL eGFR 80 06/16/2017 Result [...] should be multiplied by the estimated BMI. [facility] CHEM PANEL BUN 14 7 - 22 06/16/2017 [facility] CHEM PANEL Glucose Lvl 114 70 - 99 06/16/2017 [facility] CHEM PANEL Creatinine Lvl 0.79 0.50 - 1.40 06/16/2017 [facility] CHEM PANEL Potassium Lvl 3.7 3.5 - 5.1 06/16/2017 [facility] CHEM PANEL Sodium Lvl 143 135 - 145 06/16/2017 [facility] CHEM PANEL CO2 27 24 - 32 06/16/2017 [facility] CHEM PANEL Chloride Lvl 110 95 - 109 06/16/2017 [facility] CHEM PANEL Calcium Lvl 7.9 8.5 - 10.5 06/16/2017 [facility] CHEM PANEL AGAP 9.7 10.0 - 20.0 06/16/2017 [facility] HEMATOLOGY RDW 13.1 11.5 - 14.5 06/16/2017 [facility] Platelet 184 133 - 450 06/16/2017 [facility] MCH 28.6 27.0 - 31.0 06/16/2017 [facility] MCHC 33.6 32.0 - 36.0 06/16/2017 [facility] MCV 85.2 80.0 - 98.0 06/16/2017 [facility] HEMATOLOGY WBC 6.3 3.7 - 10.4 06/16/2017 [facility] RBC 4.14 4.20 - 5.40 06/16/2017 [facility] Hgb 11.8 12.0 - 16.0 06/16/2017 [facility] Hct 35.3 36.0 - 48.0 06/16/2017 [facility] MPV 9.5 7.4 - 10.4 06/16/2017 [facility] Segs-Bands # 3.2 1.5 - 8.1 06/16/2017 [facility] Monocytes # 0.5 0.0 - 0.8 06/16/2017 [facility] HEMATOLOGY Lymphocytes # 2.2 1.0 - 5.5 06/16/2017 [facility] HEMATOLOGY Basophils 0.9 0.0 - 1.0 06/16/2017 [facility] HEMATOLOGY Eosinophils 5.7 0.0 - 4.0 06/16/2017 [facility] HEMATOLOGY Segs 50.8 45.0 - 75.0 06/16/2017 [facility] HEMATOLOGY Monocytes 7.3 2.0 - 12.0 06/16/2017 [facility] HEMATOLOGY Lymphocytes 35.3 20.0 - 40.0 06/16/2017 [facility] HEMATOLOGY Eosinophils # 0.4 0.0 - 0.5 06/16/2017 [facility] HEMATOLOGY Basophils # 0.1 0.0 - 0.2 06/16/2017 [facility] URINE AND STOOL UA Urobilinogen <=1.0 mg/dL 0.1 - 1.0 06/15/2017 [facility] URINE AND STOOL UA Color Ltyellow 06/15/2017 [facility] URINE AND STOOL UA Blood Negative (06/15/17 11:00 AM) Negative 06/15/2017 [facility] URINE AND STOOL UA WBC 2 0 - 5 06/15/2017 [facility] URINE AND STOOL UA RBC <1 0 - 2 06/15/2017 [facility] URINE AND STOOL UA Sq Epi Occasional /LPF Few /LPF 06/15/2017 [facility] URINE AND STOOL UA Nitrite Negative (06/15/17 11:00 AM) Negative 06/15/2017 [facility] URINE AND STOOL UA Leuk Est Negative (06/15/17 11:00 AM) Negative 06/15/2017 [facility] URINE AND STOOL UA Protein Negative mg/dL Negative mg/dL 06/15/2017 [facility] URINE AND STOOL UA Glucose Negative mg/dL Negative mg/dL 06/15/2017 [facility] URINE AND STOOL UA Bili Negative *NA* (06/15/17 11:00 AM) Negative 06/15/2017 [facility] URINE AND STOOL UA Ketones Negative mg/dL Negative mg/dL 06/15/2017 [facility] URINE AND STOOL UA Spec Grav 1.004 <=1.030 06/15/2017 [facility] URINE AND STOOL UA pH 7.0 5.0 - 8.0 06/15/2017 [facility] URINE AND STOOL UA Turbidity Clear (06/15/17 11:00 AM) Clear 06/15/2017 [facility] CARDIAC ENZYMES Troponin-I <0.02 0.00 - 0.40 06/15/2017 [facility] CARDIAC ENZYMES CK MB 2.3 0.5 - 3.6 06/15/2017 [facility] CARDIAC ENZYMES Total CK 95 12 - 191 06/15/2017 [facility] CARDIAC ENZYMES CK MB Index 2.4 0.0 - 2.5 06/15/2017 [facility] CHEM PANEL A/G Ratio 1.1 0.7 - 1.6 06/15/2017 [facility] CHEM PANEL eGFR 71 06/15/2017 Result [...] should be multiplied by the estimated BMI. [facility] CHEM PANEL CO2 26 24 - 32 06/15/2017 [facility] CHEM PANEL Calcium Lvl 8.7 8.5 - 10.5 06/15/2017 [facility] CHEM PANEL Bili Total 0.6 0.2 - 1.3 06/15/2017 [facility] CHEM PANEL AGAP 12.4 10.0 - 20.0 06/15/2017 [facility] CHEM PANEL Potassium Lvl 3.4 3.5 - 5.1 06/15/2017 [facility] CHEM PANEL Chloride Lvl 104 95 - 109 06/15/2017 [facility] CHEM PANEL Sodium Lvl 139 135 - 145 06/15/2017 [facility] CHEM PANEL Total Protein 6.6 6.4 - 8.4 06/15/2017 [facility] CHEM PANEL ALT 14 0 - 65 06/15/2017 [facility] CHEM PANEL AST 17 0 - 37 06/15/2017 [facility] CHEM PANEL Alk Phos 100 39 - 136 06/15/2017 [facility] CHEM PANEL Albumin Lvl 3.4 3.5 - 5.0 06/15/2017 [facility] CHEM PANEL B/C Ratio 23 6 - 25 06/15/2017 [facility] CHEM PANEL Globulin 3.2 2.7 - 4.2 06/15/2017 [facility] CHEM PANEL Glucose Lvl 105 70 - 99 06/15/2017 [facility] CHEM PANEL BUN 20 7 - 22 06/15/2017 [facility] CHEM PANEL Creatinine Lvl 0.87 0.50 - 1.40 06/15/2017 [facility] HEMATOLOGY RBC 4.57 4.20 - 5.40 06/15/2017 [facility] HEMATOLOGY Hgb 12.8 12.0 - 16.0 06/15/2017 [facility] HEMATOLOGY MCHC 33.5 32.0 - 36.0 06/15/2017 [facility] HEMATOLOGY RDW 13.3 11.5 - 14.5 06/15/2017 [facility] HEMATOLOGY MPV 9.4 7.4 - 10.4 06/15/2017 [facility] HEMATOLOGY Platelet 198 133 - 450 06/15/2017 [facility] MCH 28.1 27.0 - 31.0 06/15/2017 [facility] HEMATOLOGY MCV 83.8 80.0 - 98.0 06/15/2017 [facility] HEMATOLOGY WBC 23.9 3.7 - 10.4 06/15/2017 [facility] HEMATOLOGY Hct 38.3 36.0 - 48.0 06/15/2017 [facility] HEMATOLOGY PT 17.1 12.0 - 14.7 06/15/2017 [facility] HEMATOLOGY INR 1.37 0.85 - 1.17 06/15/2017 [facility] HEMATOLOGY PTT 49.8 22.9 - 35.8 06/15/2017 [facility] HEMATOLOGY Monocytes 6.3 2.0 - 12.0 06/15/2017 [facility] HEMATOLOGY Eosinophils 0.6 0.0 - 4.0 06/15/2017 [facility] HEMATOLOGY Basophils 0.2 0.0 - 1.0 06/15/2017 [facility] HEMATOLOGY Basophils # 0.1 0.0 - 0.2 06/15/2017 [facility] HEMATOLOGY Eosinophils # 0.1 0.0 - 0.5 06/15/2017 [facility] HEMATOLOGY Segs 86.9 45.0 - 75.0 06/15/2017 [facility] HEMATOLOGY Lymphocytes 6.0 20.0 - 40.0 06/15/2017 [facility] HEMATOLOGY Segs-Bands # 20.8 1.5 - 8.1 06/15/2017 [facility] HEMATOLOGY Lymphocytes # 1.4 1.0 - 5.5 06/15/2017 [facility] HEMATOLOGY Monocytes # 1.5 0.0 - 0.8 06/15/2017 [facility] Pathology Reports No Data Provided for This Section Diagnostic Reports Report Value Date Source Chest 1view DX Chest radiograph 1 view INDICATION: Syncope COMPARISON: 08/20/2018 FINDINGS: Heart size is normal. Pulmonary vasculature is not congested. Lungs are clear with no pneumonic consolidation. No large pleural effusion or pneumothorax. IMPRESSION: No acute abnormality. 01/03/2019 [facility] Chest 1view DX Clinical Indication: - fall; Comparison: 06/15/2017, FINDINGS: The cardiomediastinal silhouette is normal in size. No significant pleural effusions are seen. The bony structures are intact. No evidence for pneumothorax. IMPRESSION: 1. No acute disease in the chest. 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 COMPARISON: None. TECHNIQUE: Noncontrast axial imaging of the brain was acquired from the vertex to the skull base. Reformatted coronal and sagittal images were provided for review. CT radiation dose DLP: 1740.33 mGy-cm. FINDINGS: No acute intracranial hemorrhage, midline shift, or mass effect is identified. The melendrez-white matter differentiation is preserved. The ventricles and [...] loss and mild chronic microangiopathic changes. SL: [id number] 08/20/2018 [facility] Pelvis AP DX Clinical Indication: Pain, [...] Unremarkable AP pelvis radiograph. SL: VITO 08/20/2018 [facility] Chest 1view DX EXAM: Chest 1view DX DATE: 06/15/2017 4:04 AM CDT INDICATION: - r/o PNA generalized weakness. COMPARISON: None. IMPRESSION: Prominent cardiac silhouette. No definite failure. Low lung volume. No gross focal consolidation, significant pleural effusion or pneumothorax detected. SL: [id number] 06/15/2017 [facility] Consultation Notes No Data Provided for This Section Discharge Summaries No Data Provided for This Section History and Physicals No Data Provided for This Section Vital Signs Vital Sign Value Date Comments Source Respitory Rate 16 01/04/2019 [facility] Heart Rate 89 01/04/2019 [facility] Systolic (mm Hg) 130 01/04/2019 [facility] Diastolic (mm Hg) 61 01/04/2019 [facility] Heart Rate 88 01/04/2019 [facility] Respitory Rate 16 01/04/2019 [facility] Systolic (mm Hg) 123 01/04/2019 [facility] Diastolic (mm Hg) 66 01/04/2019 [facility] Systolic (mm Hg) 127 01/04/2019 [facility] Diastolic (mm Hg) 64 01/04/2019 [facility] Temperature Oral (F) 98.1 F 01/04/2019 [facility] Heart Rate 87 01/04/2019 [facility] Respitory Rate 16 01/04/2019 [facility] Systolic (mm Hg) 154 08/21/2018 [facility] Diastolic (mm Hg) 87 08/21/2018 [facility] Temperature Oral (F) 97 F 08/21/2018 [facility] Respitory Rate 14 08/21/2018 [facility] Respitory Rate 17 08/21/2018 [facility] Systolic (mm Hg) 139 08/21/2018 [facility] Diastolic (mm Hg) 77 08/21/2018 [facility] Systolic (mm Hg) 132 08/21/2018 [facility] Diastolic (mm Hg) 77 08/21/2018 [facility] Respitory Rate 17 08/21/2018 [facility] Heart Rate 83 08/21/2018 [facility] BMI Calculated 39.62 08/20/2018 [facility] Weight 118.182 08/20/2018 [facility] Height 172.72 cm 08/20/2018 [facility] Heart Rate 74 08/20/2018 [facility] Temperature Oral (F) 97.6 F 08/20/2018 [facility] Heart Rate 61 06/16/2017 [facility] Temperature Oral (F) 97.8 F 06/16/2017 [facility] Systolic (mm Hg) 133 06/16/2017 [facility] Diastolic (mm Hg) 65 06/16/2017 [facility] Respitory Rate 16 06/16/2017 [facility] Systolic (mm Hg) 147 06/16/2017 [facility] Diastolic (mm Hg) 68 06/16/2017 [facility] Respitory Rate 15 06/16/2017 [facility] Heart Rate 62 06/16/2017 [facility] Temperature Oral (F) 98.1 F 06/16/2017 [facility] Temperature Oral (F) 98.3 F 06/16/2017 [facility] Systolic (mm Hg) 152 06/16/2017 [facility] Diastolic (mm Hg) 76 06/16/2017 [facility] Respitory Rate 16 06/16/2017 [facility] Heart Rate 67 06/16/2017 [facility] Height 170.18 cm 06/15/2017 [facility] BMI Calculated 40.02 06/15/2017 [facility] Weight 115.909 06/15/2017 [facility] Weight 113.636 06/15/2017 [facility] Encounters Location Location Details Encounter Type Encounter Number Reason For Visit Attending Provider ADM Date DC Date Status Source [facility] Inpatient [id number] David Vilchis 06/15/2017 06/16/2017 [facility] Emergency [id number] Cat Rogers 08/20/2018 08/21/2018 [facility] Emergency [id number] Jaycee Mcdowell 01/04/2019 01/04/2019 [facility] Procedures Procedure Code Date Perfomer Comments Source section<sup>1</sup> 58004810 x 4 [facility] Endarterectomy<sup>2</sup> 253219861 right side [facility] Knee replacement<sup>3</sup> [id number] bilateral [facility] Assessment and Plan Assessment and Plan [...] issues Physical therapy to eval patient 06/16/2017 [facility] Plan of Care No Data Provided for This Section Social History Social History Date Source Social History TypeResponse Smoking Status Never smoker; Exposure to Tobacco Smoke None; Cigarette Smoking Last 365 Days No; Reg Smoking Cessation Counseling No entered on: 01/03/19 01/04/2019 [facility] Family History No Data Provided for This Section Advance Directives No Data Provided for This Section Functional Status No Data Provided for This Section
--- OUTSIDE RECORDS SUMMARY | 2019-03-11 17:10 | XMS REPORT ---
Author Author [facility] Address Unknown Phone Unavailable Care Team Providers Care Embedded Software Test Engineer Name Role Phone Eliseo DYKES Unavailable Unavailable Problems This patient has no known problems. Allergies, Adverse Reactions, Alerts This patient has no known allergies or adverse reactions. Medications This patient has no known medications. Encounters Start Date/Time End Date/Time Encounter Type Admission Type Attending Clinicians Care Facility Care Department Encounter ID 2019-01-03 21:09:00 2019-01-03 21:09:00 [id number] Results Test Description Test Time Test Comments Text Results Atomic Results Result Comments CHEST SINGLE (PORTABLE) 2019-03-11 16:17:00 [place] [address] Patient Name: KELLY GODFREY MR #: [id number] : 1955 Age/Sex: 63/F Req #: [id number] Adm Physician: Ordered by: GISELE CERRATO NP Report #: [id number] Location: ER Room/Bed: Procedure: [id number] DX/CHEST SINGLE (PORTABLE) Exam Date: 03/11/19 Exam Time: 1323 REPORT STATUS: Signed EXAMINATION: CHEST SINGLE (PORTABLE) INDICATION: Altered mental status COMPARISON: Chest radiograph from 06/17/2014 FINDINGS: TUBES and LINES: None. LUNGS: The lung volumes are normal. There is left basilar opacity silhouetting the left charanjit diaphragm. PLEURA: No pleural effusion or pneumothorax. HEART AND MEDIASTINUM: The cardiomediastinal silhouette is normal in size and contour. BONES AND SOFT TISSUES: No acute fracture or dislocation. UPPER ABDOMEN: No free air under the diaphragm. IMPRESSION: Patchy opacity at the left lung base may represent aspiration or pneumonia in the proper clinical setting. Signed by: Christin Sanchez MD on 03/11/2019 4:19 PM Dictated By: CHRISTIN SANCHEZ MD 1619 Transcribed By: THEODORE on 03/11/19 1619 COPY TO: GISELE CERRATO NP CT BRAIN WO 2019-03-11 12:16:00 [place] [address] Patient Name: KELLY GODFREY MR #: [id number] : 1955 Age/Sex: 63/F Req #: [id number] Adm Physician: Ordered by: GISELE CERRATO SCORER SINGLE Report #: [id number] Location: ER Room/Bed: Procedure: [id number] CT/CT BRAIN WO Exam Date: 03/11/19 Exam Time: 1150 REPORT STATUS: Signed Exam: Head CT without contrast History: Altered mental s tatus, generalized weakness Comparison studies: No prior exams are available on the PACS at the time of dictation. Technique: Axial images were obtained from the skull base to the vertex. Coronal and sagittal images reconstructed from the axial data. Dose modulation, iterative reconstruction, and/or weight based adjustment of the mA/kV was utilized to reduce the radiation dose to as low as reasonably achievable. Radiation dose: Total DLP: 832 mGy*cm. Estimated effective dose: DLP x 0.015 Intravenous contrast: None Findings: Scalp: No abnormalities. Bones: No fractures, blastic or lytic lesions. Ventricles: Moderately dilated lateral and third ventricles, increased from the 06/11/2014 exam. Extra-axial spaces: No masses, no fluid collection. Parenchyma: There is generalized volume loss with a frontotemporal predominance with moderate disproportionate volume loss in the bilateral frontal lobes and left temporal lobe. A few scattered hypodensities in the supratentorial white matter are nonspecific but most compatible with chronic microvascular ischemic changes. Confluent hypodense changes present in the periventricular are nonspecific but may may reflect chronic microvascular ischemic or age-related changes or possibly transependymal flow CSF related 2 commuting indicating hydrocephalus. Sellar/suprasellar region: No abnormalities. Craniocervical junction: Patent foramen magnum. No Chiari one malformation. Incidental findings: Atherosclerotic calcifications in the carotid siphons. An in the left intradural vertebral artery. IMPRESSION: 1. No mass, acute hemorrhage or acute cortical infarct. 2. Ventriculomegaly with nonspecific periventricular hypodense changes as described, increased since the 2014 exams. Findings raise the possibility for nonspecific communicating hydrocephalus. 3. Chronic microvascular ischemic changes. 4. Generalized volume loss with a frontotemporal predominance have also progressed from the 06/11/2014 MRI. Similar findings can be seen with frontotemporal dementia spectrum in the appropriate clinical setting. Consider lumbar puncture and CSF analysis to further evaluate. Findings an recommendations were discussed with MARIE Cerrato at 12:58 PM on 03/11/2019. Signed by: Dr. Humera Chavez M.D. on 03/11/2019 1:03 PM Dictated By: HUMERA CHAVEZ MD 1301 Transcribed By: THEODORE on 03/11/19 1306 COPY TO: GISELE CERRATO SCORER SINGLE
[2019-03-11] MEDS: PIPER-TAZ 3.375 GM 50 ML IV SCH ×2 (17:46→23:21)
--- NOTE | 2019-03-11 18:58 | NUR ---
DR. RODRIGUEZ AT BEDSIDE FOR PT EVAL AT THIS TIME, NO ORDERS RECEIVED, WILL CONTINUE TO MONITOR.
[2019-03-11 20:16] LABS: CREATINE KINASE MB 2.3 ng/mL (0-5.0)
[2019-03-11 20:30] VITALS: BP 124/88
--- NOTE | 2019-03-11 20:35 | NUR ---
patient is a new admit that arrived via stretcher. patient has been transferred into the bed. bed is in lowest position and call landon is within reach. will continue to monitor patient.
--- NOTE | 2019-03-11 20:41 | History and Physical ---
This is a 63-year-old lady with a history of progressive dementia, was found to have weakness and inability to walk for the last three days. HISTORY OF PRESENTING ILLNESS: This is Ms. Lavonne Carver. The patient was in usual state of health until 2 days ago the patient's family noticed that the patient was finding it very difficult to ambulate. The patient had a wide-based gait and the patient was unable to walk over the last couple of days. Pain was out of control. This morning, the patient is supposed to be seen in the clinic. The patient and daughter could not get her out of bed and therefore the patient was transferred to the ER and found to have urinary tract infection. MEDICINES: She takes at home are Vytorin 10/40, glipizide 10, hydralazine 25 mg, naproxen 220 mg p.r.n., olmesartan/hydrochlorothiazide 40/12.5 daily, and Invokana 100 mg daily. ALLERGIES: NO DRUG ALLERGIES. PAST SURGICAL HISTORY: History of bilateral knee replacement, history of cholecystectomy, history of coronary artery stents, PCI. PAST MEDICAL HISTORY: History of diabetes, hypertension, hyperlipidemia, and coronary artery disease and dementia. REVIEW OF SYSTEMS: Negative for chest pain. No shortness of breath. No nausea, vomiting, or diarrhea. No constipation. No rectal bleeding. No hematochezia. No hematemesis. Positive for tenderness in the lumbar spine and also inability to walk in the recent past. PHYSICAL EXAMINATION: GENERAL: The patient is demented. VITAL SIGNS: Temperature is normal, pulse is 83, respirations of 18, blood pressure is 109/54, pulse oximetry of 100%. HEENT: Normocephalic, atraumatic. Pupils are reactive to light and accommodation. The patient is demented. CVS: S1, S2. Regular. ABDOMEN: Nontender, nondistended. EXTREMITIES: No clubbing, no cyanosis, no edema. NEUROLOGIC: Examination of the neurological system could not be examined secondary to patient's dementia. LABORATORY VALUES: The patient's white count is 7000, hemoglobin of 10.7, hematocrit of 32.7. Chemistry shows sodium 134, potassium 3.3, total bilirubin is 2. BNP was 426. Albumin is 2.9. Urine was cloudy with small leuk esterase, and many bacteria with nitrites negative. IMAGING STUDIES: Brain CT was done, which showed no mass, acute hemorrhage, acute cortical infarct, ventriculomegaly with nonspecific periventricular hyperdense changes, chronic microvascular changes, generalized volume also with frontotemporal predominance. ASSESSMENT: 1. Urinary tract infection. 2. Change in physical status and mental status. 3. Normal-pressure hydrocephalus. 4. Dementia. 5. Hypertension. 6. Hyperlipidemia. 7. Coronary artery disease. PLAN: Discussed with the family in detail. At this point in time, they did not want any invasive procedures. We will go ahead and treat the infection with IV antibiotics and culture her urine. The family's plan was to transfer to a memory care unit, which was supposed to happen this Sunday. We will go over and facilitate this with the help of case management and workers. Further recommendation per clinical course. We will restart all her medications. We will see her in the morning and facilitate transfer and continue with IV antibiotics and cultured that is pending to be followed. MD LEONEL Oden/JACINTO /[id number]
--- NOTE | 2019-03-11 20:45 | NUR ---
patients temperature is 100.9, and heart rate is 120. MD notified, received new orders for acetaminophen 650mg q 6hours as needed. and metoprolol 25mg one time only. Also received order to DC glipzide.
[2019-03-11 20:59] VITALS: BP 124/88
[2019-03-11] MEDS ORDERED: ACETAMINOPHEN 325 MG TAB PO PRN (21:45)
[2019-03-11] MEDS ORDERED: METOPROLOL TARTRATE 25 MG TAB PO ONE (21:45)
[2019-03-11] MEDS ORDERED: SODIUM CHLORIDE 0.9% 250ML 250 ML ONE (22:51)
[2019-03-12] VITALS (9 sets, daily range): BP systolic 93–148; BP diastolic 54–70
[2019-03-12] MEDS: PIPER-TAZ 3.375 GM 50 ML IV SCH ×3 (05:02→18:18)
[2019-03-12 05:33] LABS: BASOPHILS % 0.4 % (0.0-1.0); EOSINOPHILS # (AUTO) 0.1 (0.0-0.4); EOSINOPHILS % 1.6 % (0.0-6.0); HEMATOCRIT 30.7 % (34.2-44.1); HEMOGLOBIN 10.1 g/dL (12.0-16.0); LYMPHOCYTES % 14.8 % (18.0-39.1); MEAN CORPUSCULAR HGB CONC 32.9 g/dL (31-35); MONOCYTES # (AUTO) 0.8 (0.2-0.8); MONOCYTES % 11.5 % (4.4-11.3); NEUTROPHILS # (AUTO) 4.8 (2.1-6.9); NEUTROPHILS % 71.3 % (38.7-80.0); PLATELET COUNT 173 x10e3/uL (140-360); RED BLOOD COUNT 3.61 x10e6/uL (3.6-5.1); RED CELL DISTRIBUTION WIDTH 12.3 % (11.7-14.4)
[2019-03-12 06:02] LABS: CREATINE KINASE MB 1.6 ng/mL (0-5.0)
[2019-03-12 06:22] LABS: ALANINE AMINOTRANSFERASE 14 IU/L (0-55); ALBUMIN 2.7 g/dL (3.5-5.0); ALKALINE PHOSPHATASE 59 IU/L (40-150); BLOOD UREA NITROGEN 18 mg/dL (7-26); BUN/CREATININE RATIO 20 (6-25); CALCIUM 8.3 mg/dL (8.4-10.2); CARBON DIOXIDE 28 mmol/L (22-29); CHLORIDE 100 mmol/L (98-107); CREATININE, SERUM 0.92 mg/dL (0.57-1.11); EST GLOMERULAR FILTRATION RATE > 60 ML/MIN (60-); GLUCOSE 112 mg/dL (74-118); SODIUM 136 mmol/L (136-145)
--- NOTE | 2019-03-12 06:43 | NUR ---
patients potassium is 3.0. MD notified. received new order for 40meq potassium now and another 40meq at 6pm.
--- NOTE | 2019-03-12 06:47 | Diagnostic Imaging Report ---
EXAMINATION: CHEST SINGLE (PORTABLE) COMPARISON: Chest x-ray 03/11/2019 INDICATION: ^altered mental status ^[id number] ^0555 ^Y DISCUSSION: Frontal view of the chest obtained at 0549 hours. HEART AND MEDIASTINUM: The heart is top normal in size. The aorta is tortuous LINES: None. LUNGS: Lung volumes are low. Left basilar airspace opacity is similar. Pulmonary vascular markings are normal. No interstitial edema. PLEURA: No pleural effusion or pneumothorax. BONES AND SOFT TISSUES: No focal osseous lesion. The soft tissues are normal. IMPRESSION: Low lung volumes and left basilar airspace opacity, either atelectasis or infiltrate. Signed by: Dr. Julio Gonzalez MD on 03/12/2019 6:43 AM
--- NOTE | 2019-03-12 06:51 | NUR ---
report given to day nurse. patient is resting comfortably in bed. bed is in lowest position and call landon is within reach.
[2019-03-12] MEDS ORDERED: POTASSIUM CHLORIDE 10MEQ EA PO ONE ×2 (07:30→18:00)
[2019-03-12] MEDS ORDERED: GLIPIZIDE 5 MG TAB PO SCH (07:30)
[2019-03-12] MEDS ORDERED: [UNRECOGNIZED DRUG - OTHER] PO SCH (09:00)
[2019-03-12] MEDS ORDERED: ASPIRIN PO SCH (09:00)
[2019-03-12] MEDS: HYDRALAZINE HCL 25 MG TAB PO SCH ×2 (09:00→17:16)
[2019-03-12] MEDS ORDERED: CALCIUM CARBONATE PO SCH (09:00)
[2019-03-12] MEDS: ASPIRIN 325 MG TAB EC PO SCH (09:34)
[2019-03-12] MEDS: HYDROCHLOROTHIAZIDE 25 MG TAB PO SCH (09:34)
[2019-03-12] MEDS: OLMESARTAN 20 MG TAB PO SCH (09:34)
[2019-03-12] MEDS: CANAGLIFLOZIN 100 MG TABLET PO SCH (09:34)
[2019-03-12] MEDS: INSULIN LISPRO 100 UNIT/1 ML 3ML VIAL SQ SCH ×2 (09:35→09:45)
[2019-03-12] MEDS: INSULIN GLARGINE 100 UNITS/ML VIAL SQ SCH (09:35)
[2019-03-12] MEDS: EZETIMIBE 10 MG TAB PO SCH (09:35)
[2019-03-12] MEDS ORDERED: ONDANSETRON HCL 4 MG ORAL DISINTEGRATING TAB PO PRN (12:15)
[2019-03-12 13:54] LABS: CREATINE KINASE MB 1.4 ng/mL (0-5.0)
--- NOTE | 2019-03-12 14:34 | NUR ---
CALLED [facility], , SPOKE WITH MADHURI SHE STATES THEY ARE A [facility] AND CANNOT DO IV'S. STATES PT ROOM WILL BE READY ON SUNDAY PENDING FAMILY COMPLETING THE PAPERWORK. SPOKE WITH DAUGHTER MARLEY [phone] AND LET HER KNOW FACILITY STILL NEEDS PAPERWORK, FACILITY IS ASKING FOR CLINICALS TO BE FAXED TO [phone]. FAMILY WILL BE ABLE TO BRING HER AT ANYTIME SUNDAY AND THEN AGAIN SUNDAY DURING BUSINESS HOURS FOR SOMEONE TO BA ABLE TO CHECK HER IN.
[2019-03-12 16:49] LABS: INR 1.05; PROTHROMBIN TIME 14.2 seconds (11.9-14.5)
[2019-03-12 16:50] LABS: PARTIAL THROMBOPLASTIN TIME 44.9 seconds (23.8-35.5)
[2019-03-12 18:58] LABS: TOTAL PROTEIN,CSF 36.7 mg/dL (15-40)
[2019-03-12 19:25] LABS: APPEARANCE,CSF CLEAR (CLEAR); COLOR,CSF COLORLESS (COLORLESS)
[2019-03-12 19:26] LABS: TUBE NUMBER 3
[2019-03-12 19:27] LABS: WHITE BLOOD CELL,CSF 0 cells/uL (0-5)
--- NOTE | 2019-03-12 19:46 | Progress Note ---
DATE: 03/12/2019 SUBJECTIVE: This is a 63-year-old female with a history of recurrent falls and also history of urinary tract infection, came in yesterday, was found to have a wide-based gait with dysuria and problems with urination. The patient also had incontinence that was noted and a neurology consult with Dr. Padilla was done. The patient's NPH was significant enough. The patient had a spinal tap this evening and the patient improved in her symptoms of gait and also a neurosurgical consult is being done at this point in time with Dr. Rojas for a possible shunt. OBJECTIVE: VITAL SIGNS: Temperature is 98.9, pulse of 62, respirations of 18, blood pressure is 101/61, pulse oximetry 99%. HEENT: Normocephalic, atraumatic. Pupils are reactive. CVS: S1, S2 normal. Regular rate and rhythm. ABDOMEN: Nontender, nondistended. EXTREMITIES: No clubbing, no cyanosis, no edema. LABORATORY VALUES: Today's white count is 6.70, hemoglobin of 10.1, hematocrit 30.7. Chemistries; sodium is normal, potassium is 3.3. Coags within normal limits. The patient's CSF has been done, pending cultures. The patient's microbiology, urine culture is pending, still Gram stain from CSF fluid is pending too. ASSESSMENT: 1. Normal-pressure hydrocephalus with a marked improvement in symptoms after lumbar puncture. 2. Urinary tract infection. The patient is currently on Zosyn. We will continue on the same. 3. History of diabetes mellitus. 4. History of hyperlipidemia, frontal dementia. 5. Hyperlipidemia. Continue her home medications, pending neurosurgical evaluation for MILL CRANE OPERATOR shunt. Further recommendation per clinical course. The patient will be continued on potassium. Check CBCs and BMP tomorrow for further recommendation and clinical course. We will continue to monitor the patient. MD LEONEL Oden/SIMONL /[id number]
[2019-03-12 20:16] LABS: EOSINOPHILS,CSF 0 % (0-0); LYMPHOCYTES,CSF 0 % (40-80); MONOCYTES,CSF 0 %; NEUTROPHILS,CSF 0 % (0-6)
[2019-03-12] MEDS ORDERED: SIMVASTATIN 40 MG TAB PO SCH (21:00)
--- NOTE | 2019-03-12 23:51 | Consultation ---
DATE OF CONSULTATION: 03/12/2019 Neurology Consult Note HISTORY OF PRESENT ILLNESS: Ms. Carver is a 63-year-old right-hand dominant woman with past medical history significant for hypertension, hyperlipidemia, diabetes mellitus, coronary artery disease, and frontotemporal dementia admitted to [facility] on March 11, 2019, with worsening confusion, generalized weakness, poor balance, and impairment of gait. The majority of the patient's history is obtained from her daughter, who is at the bedside. According to the patient's daughter, Ms. Carver was diagnosed with frontotemporal dementia, moderate in severity, approximately 4 years ago. At present, the patient requires xdlgovci-[id number]-pjeufon assistance with activities of daily living. She must be prompted and directed to use the restroom, bathe, dress, heat, etc. Ms. Carver frequently repeats herself. She is unable to recognize many family members and close friends, including her daughter. Ms. Cavrer no longer drives. She no longer manages her own finances, schedules her own appointments, or manages her own medications. At the time of this admission, the patient's family was in the process of placing her in a senior care with a memory care unit. Approximately 1 week ago, Ms. Carver's daughter noted worsening confusion. Within the past 2 days, she has noted generalized weakness, poor balance, impairment of gait. According to the patient's daughter, for the past 2 days, Ms. Carver has been unable to ambulate without maximal assistance. The patient has experienced similar symptoms previously; the patient's daughter reports similar symptoms occurring in the setting of urinary tract infections in the past. Therefore, Ms. Carver was brought to the emergency center at [facility] for further evaluation of her symptoms. Upon arrival in the emergency center, the patient was afebrile with a blood pressure of 132/105 mmHg and a pulse of 85 beats per minute. Documentation of the patient's neurological examination is unavailable for review at this time. Routine laboratory data, including a urinalysis did reveal evidence of urinary tract infection. A chest x-ray demonstrated findings suspicious for left lower lobe pneumonia. While in the emergency center, Ms. Carver underwent a CT of the brain without contrast as well. This study did not reveal evidence of recent large territorial ischemia or hemorrhage. However, the study did reveal moderately dilated lateral and 3rd ventricles, significantly increased from the prior examination dated June 11, 2014. Confluent hypodense changes present in the periventricular region were noted as well. Due to these findings, the neuroradiologist expressed a suspicion for normal pressure hydrocephalus and recommended further evaluation with a high- volume lumbar puncture. Therefore, Ms. Carver was admitted to [facility] under observation status for further evaluation and treatment of her symptoms. Ms. Carver's daughter does report seemingly accelerated memory loss and cognitive dysfunction over the past few weeks. She does not report alteration in gait or balance prior to 2 days ago. According to the patient's daughter, Ms. Carver has experienced intermittent urinary incontinence for the past few years. However, this has worsened over the past 2 months approximately. REVIEW OF SYSTEMS: Fever; cough, productive of clear sputum; urinary incontinence, memory impairment, acute confusion, generalized weakness, impairment of balance and gait. Otherwise, a 12-point review of systems is negative. PAST MEDICAL HISTORY: Hypertension, hyperlipidemia, diabetes mellitus type 2, coronary artery disease, multiple urinary tract infections, and frontotemporal dementia. PAST SURGICAL HISTORY: PCI, placement of coronary artery stents, cholecystectomy, bilateral knee replacements. PAST HOSPITALIZATIONS: Surgeries/procedures as listed, multiple urinary tract infections, hypoglycemia. FAMILY MEDICAL HISTORY: The only significant family medical history endorsed by Ms. Carver's daughter is COPD in the patient's mother. SOCIAL HISTORY: Ms. Carver is a . She is retired. The patient's daughter does not report current or prior tobacco, alcohol, or recreational drug use. MEDICATIONS: Home medications: 1. Naida Women's Aspirin 81 mg by mouth daily. 2. Vytorin 10/40 mg one tablet by mouth daily. 3. Glipizide 10 mg one tablet by mouth twice daily. 4. Hydralazine 25 mg one tablet by mouth at bedtime daily. 5. Naproxen sodium 220 mg two tablets by mouth every morning. 6. Benicar 40/12.5 mg one tablet by mouth daily. 7. Invokana 100 mg by mouth daily. Hospital medications: Tylenol, aspirin, Zetia, hydralazine, hydrochlorothiazide, Lantus, Humalog, morphine, Invokana, Benicar, Zofran, Zosyn, potassium chloride, and simvastatin. ALLERGIES: NO KNOWN DRUG ALLERGIES. NO KNOWN FOOD ALLERGIES. NO KNOWN ALLERGIES TO LATEX. NO KNOWN ALLERGIES TO IODINE OR OTHER CONTRAST MATERIALS. PHYSICAL EXAMINATION: VITAL SIGNS: Height 67 inches, weight 267 pounds, BMI 41.8 kg/m2, blood pressure 114/54 mmHg, pulse 54 beats per minute, respiratory rate 18 breaths per minute, oxygen saturation 97% on room air. GENERAL: The patient is awake and alert, does not appear distressed. Morbidly obese. HEENT: Normocephalic, atraumatic. Pupils are equal, round, and reactive to light. Moist mucous membranes. NECK: Supple. No appreciable thyromegaly. No appreciable carotid bruits. CARDIOVASCULAR: S1, S2. Regular rate and rhythm. No murmurs, rubs, or gallops. RESPIRATORY: Clear to auscultation bilaterally. No wheezes, rhonchi, or rales. EXTREMITIES: The skin is warm and dry. No clubbing, cyanosis, or edema. The posterior tibial and dorsalis pedis pulses are 1+ and symmetric. SKIN: Abrasions over the left forearm and left foot. NEUROLOGIC: Memory/Attention: The patient is awake and alert, oriented to person only. Ms. Carver intermittently follows simple commands. Cranial Nerves: Cranial nerve 1 -- not tested. Cranial nerve 2, 3, 4, and 6 -- pupils are equal and round, react briskly to light (from 4 mm to 2 mm). Extraocular movements are grossly intact. No nystagmus. Cranial nerve 5 -- sensation to light touch is intact in the bilateral V1 through V3 distributions. Strength in the temporalis and masseter muscles is within normal limits. Cranial nerve 7 -- the face is symmetric as are all facial movements. Strength is within normal limits. Cranial nerve 8 -- hearing is diminished to finger rub bilaterally. Cranial nerve 9, 10 -- the soft palate elevates equally and symmetrically. Cranial nerve 11 -- normal strength of the bilateral sternocleidomastoid and trapezius muscles. Cranial nerve 12 -- the tongue protrudes midline and moves symmetrically from [id number]. Strength: Bulk is normal. There are normal functional movements of both arms and both legs. Strength is grossly 5/5. Tone is normal in both arms and both legs. DTRs: Deep tendon reflexes are 2+ and symmetric at the triceps, biceps, and brachioradialis. Deep tendon reflexes are absent and symmetric at the patellas and Achilles. Plantar responses are flexor bilaterally. Sensation: Ms. Carver withdraws both arms and both legs to peripheral noxious stimulation. Cerebellar: Unable to assess secondary to the patient's inability to follow directions. Gait: The patient ambulates a few steps with bilateral maximal assistance. Gait has a magnetic quality. Speech: Spontaneous speech is normal without appreciable dysarthria or aphasia. Repetition is intact. Spontaneous speech is limited. Involuntary movements: None. Pronator Drift: None. LABORATORY DATA: The most recent comprehensive metabolic panel is significant for a potassium of 3.0, calcium of 8.3, total bilirubin of 1.5, total protein of 5.4, and albumin of 2.7. Cardiac enzymes are negative x4. Amylase 25. Lipase 10. Lactic acid 8.2. B-natriuretic peptide 426.9. The CBC with differential and platelets reveals a white blood cell count of 6.70 with 71.3% neutrophils, 14.8% lymphocytes, 11.5% monocytes, 1.6% eosinophils, and 0.4% basophils. The hemoglobin and hematocrit are 10.1 and 30.7 respectively. The platelet count is 173. PT 14.2, INR 1.05, PTT 44.9. A urinalysis revealed slightly cloudy urine with 2+ protein, 6 to 10 white blood cells, and many urine bacteria with no urine epithelial cells. A urine culture collected on March 11, 2019, is pending. DIAGNOSTIC STUDIES: Electrocardiogram, 03/11/2019: Sinus rhythm at 77 beats per minute with premature atrial complexes. Right bundle-branch block. Left anterior fascicular block. Chest x-ray, 03/11/2019: Patchy opacity at the left lung base may represent aspiration or pneumonia in the proper clinical setting. CT of the brain without contrast, 03/11/2019: On my review, there is no evidence of recent or remote large territorial ischemia, hemorrhage, mass, or mass effect. There is mild diffuse cerebral atrophy with disproportionate volume loss of the bilateral frontal and left temporal lobes, moderate in severity. There are a few scattered hypodensities in the supratentorial white matter compatible with mild chronic small-vessel ischemic disease. There are confluent hypodense changes in the periventricular region suspicious for transependymal CSF flow. Chest x-ray, 03/12/2019: Low lung volumes with left basilar airspace opacity, either atelectasis or infiltrate. ASSESSMENT AND PLAN: Ms. Carver is a 63-year-old right-hand dominant woman with an extensive past medical history, including frontotemporal dementia diagnosed approximately 4 years ago, admitted to [facility] on March 11, 2019, with acutely worsening confusion, generalized weakness, poor balance, and impairment of gait. The patient has undergone a thorough neurological examination with findings detailed above. The patient's laboratory data and other diagnostic studies have been reviewed and are documented above. The acutely worsening confusion, generalized weakness, poor balance, and impairment of gait are probably due to a urinary tract infection and possible pneumonia superimposed on baseline frontotemporal dementia. However, the patient's daughter does report a subacute history (several weeks) of accelerated memory loss and cognitive deficits and worsening urinary incontinence. Based on this history as well as the findings on the CT of the brain without contrast, there is suspicion for normal-pressure hydrocephalus. The diagnosis of normal-pressure hydrocephalus, the evaluation, and treatment were discussed in detail with the patient's daughter. Ms. Carver's daughter had the opportunity to ask several questions, which were answered to her satisfaction. Following this discussion, the patient's daughter elected to proceed with high- volume lumbar puncture to confirm a diagnosis of normal-pressure hydrocephalus. RECOMMENDATIONS: As follows: 1. A high-volume lumbar puncture (approximately 30 mL) under Interventional Radiology will be ordered. It has been requested the opening and closing pressures be recorded. 2. Routine cerebral spinal fluid studies will be ordered as follows: CSF cell count with differential, CSF protein, CSF glucose, CSF Gram stain with culture, CSF VDRL, and CSF West Nile virus. 3. Defer treatment of the remaining medical comorbidities to the primary and other services following the patient. Thank you for this consultation. I will continue to follow the patient while she remains in the hospital. TIME SPENT: 70 minutes. Analia Padilla MD CP/MODL /[id number]
[2019-03-13] MEDS: PIPER-TAZ 3.375 GM 50 ML IV SCH ×3 (00:09→12:50)
[2019-03-13 04:15] VITALS: BP 129/77
[2019-03-13 05:40] LABS: BASOPHILS # (AUTO) 0.1 (0.0-0.1); BASOPHILS % 0.8 % (0.0-1.0); EOSINOPHILS # (AUTO) 0.2 (0.0-0.4); EOSINOPHILS % 3.2 % (0.0-6.0); HEMOGLOBIN 10.6 g/dL (12.0-16.0); LYMPHOCYTES # (AUTO) 1.4 (1.0-3.2); LYMPHOCYTES % 24.1 % (18.0-39.1); MEAN CORPUSCULAR HEMOGLOBIN 28.2 pg (28-32); MEAN CORPUSCULAR HGB CONC 33.1 g/dL (31-35); MEAN CORPUSCULAR VOLUME 85.1 fL (81-99); MONOCYTES # (AUTO) 0.9 (0.2-0.8); NEUTROPHILS # (AUTO) 3.4 (2.1-6.9); NEUTROPHILS % 56.6 % (38.7-80.0); PLATELET COUNT 186 x10e3/uL (140-360); RED BLOOD COUNT 3.76 x10e6/uL (3.6-5.1); RED CELL DISTRIBUTION WIDTH 12.3 % (11.7-14.4)
[2019-03-13 06:00] LABS: ANION GAP 11.5 mmol/L (8-16); BLOOD UREA NITROGEN 16 mg/dL (7-26); BUN/CREATININE RATIO 18 (6-25); CALCIUM 8.6 mg/dL (8.4-10.2); CARBON DIOXIDE 28 mmol/L (22-29); CHLORIDE 104 mmol/L (98-107); CREATININE, SERUM 0.88 mg/dL (0.57-1.11); EST GLOMERULAR FILTRATION RATE > 60 ML/MIN (60-); GLUCOSE 87 mg/dL (74-118); POTASSIUM 3.5 mmol/L (3.5-5.1); SODIUM 140 mmol/L (136-145)
--- NOTE | 2019-03-13 07:10 | NUR ---
PT ALERT RESP EVEN AND UNLABORED AT THIS TIME, PT HAVE SOME CONFUSION PT HAS FAMILY MEMBER AT BEDSIDE, CALL LIGHT IN REACH WILL CONT. TO MONITOR.
--- NOTE | 2019-03-13 07:53 | Progress Note ---
DATE: 03/13/2019 SUBJECTIVE: This is a 63-year-old female, who comes in with frequent falls and history of incontinence and urinary tract infection. The patient had a lumbar puncture tap yesterday, which improved her symptoms of gait considerably. A neurosurgical consultation with Dr. Rojas ordered for possible TECHNICAL ACCOUNT MANAGER shunt. Currently, the patient is stable. Slept well. No chest pains. No shortness of breath and has been tolerating food. OBJECTIVE: VITAL SIGNS: Temperature is 96.8, pulse 61, respiration rate is 16, blood pressure is 129/77. HEENT: Normocephalic, atraumatic. The patient is alert, has frontal dementia. CVS: S1 and S2 normal. Regular rate and rhythm. ABDOMEN: Nontender, nondistended. EXTREMITIES: No clubbing. No cyanosis. No edema. MICROBIOLOGY: Urine cultures have shown gram-negative, identification and susceptibility to follow. LABORATORY VALUES: Other than that, white count has came down to 5.93, hemoglobin of 10.6, hematocrit of 32.0, and left shift has dissipated. Chemistries; sodium 140, potassium 3.5, BUN of 16, and creatinine of 0.88. Glucoses have been running normal. ASSESSMENT: 1. Normal pressure hydrocephalus with marked improvement after lumbar tap. Plan is to have surgical consult with Neurosurgery. 2. Urinary tract infection, gram-negative rosalind. Continue on Zosyn. We will continue to await for susceptibilities. 3. History of diabetes mellitus. Continue with insulin sliding scale and antidiabetic regimen. 4. History of hyperlipidemia, coronary artery disease. Continue with CV medications. 5. Frontal dementia. Continue to consult Social Service for possible placement for rehab facility in a memory care unit. Further recommendation per clinical course, and also Neurosurgical evaluation and recommendation. MD LEONEL Oden/SIMONL /[id number]
[2019-03-13 08:01] VITALS: BP 145/68
[2019-03-13 08:50] VITALS: BP 145/68
[2019-03-13] MEDS: INSULIN LISPRO 100 UNIT/1 ML 3ML VIAL SQ SCH (09:00)
[2019-03-13] MEDS: CANAGLIFLOZIN 100 MG TABLET PO SCH (09:00)
[2019-03-13] MEDS: INSULIN GLARGINE 100 UNITS/ML VIAL SQ SCH (09:00)
[2019-03-13] MEDS: ASPIRIN 325 MG TAB EC PO SCH (09:10)
[2019-03-13] MEDS: HYDROCHLOROTHIAZIDE 25 MG TAB PO SCH (09:10)
[2019-03-13] MEDS: OLMESARTAN 20 MG TAB PO SCH (09:12)
[2019-03-13] MEDS: EZETIMIBE 10 MG TAB PO SCH (09:13)
[2019-03-13] MEDS: HYDRALAZINE HCL 25 MG TAB PO SCH (09:13)
[2019-03-13 12:00] VITALS: BP 115/57
--- NOTE | 2019-03-13 12:49 | NUR ---
PATIENT RECEIVED FROM OBS PER STRETCHER. ALERT AND VERBALLY RESPONSIVE, BUT CONFUSED. [facility]IDE[facility] [address] [address] BED IN LOWER POSITION AND LOCKED. CALL LIGHT AT REACH.
--- NOTE | 2019-03-13 13:23 | NUR ---
Initiated transfer to [place]. SPoke with latoya at the transfer center. Awaiting on a call back
--- NOTE | 2019-03-13 13:38 | NUR ---
Phyllis from [facility] transfer center called and informed of bed approval. ANALI Pisano approved at [phone]. Dr Saldivar to accept and transfer to room 5010. report to [phone]. Informed MARTIN Martinez and family aware as well
--- NOTE | 2019-03-13 14:44 | Consultation ---
DATE OF CONSULTATION: 03/13/2019 REASON FOR CONSULTATION: Normal pressure hydrocephalus. HISTORY OF PRESENT ILLNESS: The patient is a 63-year-old woman, who was diagnosed with frontotemporal dementia a couple of years ago. She had a CT and MRI of the brain at [facility] in 2013, which revealed normal ventricle size. Over the past several years, she has had a progressive decline of her memory and intellectual function, which has substantially accelerated over the past six months. Over the past month, her gait has substantially deteriorated and she has had incontinence. Several days ago, the daughters noticed that she could no longer stand up to get out of bed and was more confused. She was admitted to [facility] and treated for a urinary tract infection. Neurology consultation was obtained and a head CT was performed, which revealed her ventricle size to be substantially larger than in 2014. A diagnostic lumbar puncture was performed yesterday after which her gait substantially improved according to Dr. Padilla, the neurologist, and the family. Her mental status remains unchanged. I was consulted for evaluation and treatment of normal pressure hydrocephalus. PAST MEDICAL HISTORY: Diabetes, hypertension, hyperlipidemia, coronary artery disease. PAST SURGICAL HISTORY: Bilateral knee replacement, cholecystectomy, coronary artery stenting. ALLERGIES: NONE. MEDICATIONS: At home, Vytorin 10/40, glipizide 10, hydralazine 25 mg, and naproxen 220 mg p.r.n., olmesartan/hydrochlorothiazide 40/12.5 mg daily, Invokana 100 mg daily. PHYSICAL EXAMINATION: On examination, the patient is awake, resting in her hospital bed. She follows simple commands intermittently and appears to have a significant receptive speech deficit. She cannot tell me the name of a pen that I hold up to her and cannot tell me what it is used for. She cannot tell me her age. When asked where she is, she says I am here. When asked to lift up her arms, I have to demonstrate to her how to do this. She has a good deal of motor apraxia. She has a great deal of difficulty planning the action of getting up out of bed, sitting up and then standing and requires substantial assistance to do so. I was finally able to get her up to stand and take a couple of steps. Her gait is unstable and is marked by profound magnetic type motor apraxia. She has significant retropulsion. Cranial nerves are intact. Motor strength is symmetric. Plantar responses are equivocal bilaterally. IMPRESSION: The triad of progressive dementia, gait apraxia, and urinary incontinence in the setting of enlargement of the ventricles on CT, which is new compared to a previous MRI performed in 2013 is consistent with the diagnosis of normal pressure hydrocephalus. Furthermore, the positive response of her gait, but not her mentation to lumbar puncture is also confirming the diagnosis. However, I believe that she may have normal pressure hydrocephalus superimposed on some other type of dementia such as frontotemporal dementia. Her significant receptive speech disturbance is quite uncharacteristic for normal pressure hydrocephalus. I discussed all these issues with the family in great detail. I recommend proceeding with ventriculoperitoneal shunt at least so that she can stand up and walk. Otherwise, she will be confined to bed. I explained that I am pessimistic about the extent to which her mental status may improve after shunting. The risks of infection, bleeding, CSF leakage, shunt obstruction and malfunction, and the small possibility of subdural hematoma formation or intercerebral bleeding were explained to the family. They fully understand these issues and give informed consent to proceed with surgery. We will proceed with transferring the patient to [facility] today or tomorrow so that she can undergo ventriculoperitoneal shunting on Sunday. Agus Rojas MD PP/JACINTO /[id number]
--- NOTE | 2019-03-13 15:45 | NUR ---
PATIENT TRANSFERRED TO [facility]. REPORT CALLED AND GIVEN TO RECEIVING NURSE. IV TO LEFT AC INTACT AND PATENT. PATIENT'S DAUGHTER AT BED SIDE AT THIS TIME. ALL PERSONAL ITEMS TAKEN WITH PATIENT. LEFT UNIT ON STRETCHER PER AMBULANCE.
[2019-03-13] MEDS ORDERED: MEMANTINE 10 MG TAB PO SCH (17:00)
[2019-03-13] MEDS ORDERED: DONEPEZIL HCL 5 MG TAB PO SCH (21:00)
--- NOTE | 2019-03-14 12:17 | Diagnostic Imaging Report ---
Date and Time: 03/12/2019 18:30 Procedure: Fluoroscopically guided lumbar puncture loading machine operator helper: Claudia Rider MD Pre-operative diagnosis: Normal pressure hydrocephalus Post-operative diagnosis: Unchanged Conscious Sedation: None The patient's heart rate and pulse oximetry were continuously monitored by the interventional radiology nurse. Blood pressure was monitored at 5 minute intervals. Additional Medications: 1% lidocaine Fluoroscopy time: 2.2 minutes Dose-area Product: 5.66 mGycm2. Frontal Air Kerma: 17.4 mGy Contrast used: None Estimated blood loss: Minimal Specimens: 30cc cerebrospinal fluid Implants: None DISCUSSION: Informed consent was obtained and documented in the medical record after discussion of risks and benefits. The patient was placed in the prone position on the angiographic table and the lumbar spine was prepped and draped in the standard sterile fashion. Full sterile barrier technique was used. A site was selected under fluoroscopy and 1% lidocaine was infiltrated into the skin and subcutaneous tissues for local anesthesia. Under live fluoroscopic guidance, a 20 gauge spinal needle was advanced into the thecal space. Opening pressure was measured at 10mmHg. Approximately 30cc cerebrospinal fluid was removed as per the procedural request and sent for cultures and labs. Closing pressure was measured at 7mmHg. The needle was removed and hemostasis easily achieved. Sterile dressing was applied. The patient tolerated the procedure well and was transported back to the floor in good condition. FINDINGS: Opening pressure 10mmHg Closing pressure 7mmHg IMPRESSION: Successful image guided lumbar puncture with 30cc cerebrospinal fluid removed and sent for analysis. Opening pressure of 10mmHg, closing pressure of 7mmHg. Signed by: Claudia Rider MD on 03/14/2019 12:13 PM
--- NOTE | 2019-06-01 03:32 | Discharge Summary ---
HISTORY: This patient came in with acute mental status changes. A CT of the brain was found to have normal-pressure hydrocephalus. The patient was seen by Dr. Rojas for possible CAT SITTER shunt and to consult with Dr. Padilla was done. The patient had a therapeutic tap and the patient improved her gait considerably. The patient was then taken to a nearby facility for a shunt. The patient also has history of diabetes, which was improved with sliding scale, history of hyperlipidemia, coronary artery disease, and frontal dementia. The patient was continued on CV medications and also dementia medicine. The patient was seen by Dr. Rojas and transferred over to the [facility] and the patient was to undergo CAT SITTER shunt surgery in that facility. FINAL DIAGNOSES: 1. Normal pressure hydrocephalus needing a stent, status post lumbar puncture therapeutic. 2. Urinary tract infection. The patient is on Zosyn, continue on it while in the hospital. 3. History of diabetes mellitus. Continue with antidiabetic medication. 4. History of coronary artery disease and hyperlipidemia. Continue with CV medication. Further information to look in the chart. For medicines on discharge, look in the medical reconciliation sheet. MD LEONEL Oden/JACINTO /[id number]
== END 2019-03-13 15:00 | disposition short-term general hospital (02) | DRG 56 ==
LOC: ER 10:48 → ERHOLD 14:18 → IMCU 20:30 → OBSVTOIN 03-13 10:57 → MED/SURG3 03-13 12:41
PROVIDERS: ADMIT Family Medicine; ATTEND Family Medicine
PROC: 009U3ZX Drainage of Spinal Canal, Percutaneous Approach, Diagnostic (ICD-10-PCS; principal; 2019-03-12)
DX: G91.0 Communicating hydrocephalus (principal); G93.41 Metabolic encephalopathy; N39.0 Urinary tract infection, site not specified; I10 Essential (primary) hypertension; I25.10 Atherosclerotic heart disease of native coronary artery without angina pectoris; E78.5 Hyperlipidemia, unspecified; R32 Unspecified urinary incontinence; R26.9 Unspecified abnormalities of gait and mobility; E11.9 Type 2 diabetes mellitus without complications; Z96.653 Presence of artificial knee joint, bilateral; R48.2 Apraxia; Z74.01 Bed confinement status; G31.09 Other frontotemporal neurocognitive disorder; F02.80 Dementia in other diseases classified elsewhere, unspecified severity, without behavioral disturbance, psychotic disturbance, mood disturbance, and anxiety
CPT/HCPCS: 36415; 62270; 70450; 71045; 74470; 77003; 80048; 80053; 81001; 81025; 82150; 82550; 82553; 82945; 82948; 83605; 83690; 83880; 84157; 84484; 85025; 85610; 85730; 86592; 86789; 87070; 87086; 87186; 87205; 89051; 93005; 99284; G0378; J0696; J1815; J2543; J7050; Q0162